=== PATIENT | male | born 1970 | race Caucasian/White ===

== ENCOUNTER 2017-04-04 11:39 | Inpatient (IN) ==
[2017-04-04] MEDS ORDERED: Aspirin 81 MG TAB.CHEW PO ONE (12:08)
--- NOTE | 2017-04-04 12:30 | Emergency Department Note ---
Disposition Clinical Impression: NSTEMI (non-ST elevated myocardial infarction), Angina pectoris, Anginal equivalent Disposition: Admitted As Inpatient Condition: Fair Chest Pain HPI - General Chief Complaint: ED Chest Pain Stated Complaint: htn Time Seen by Provider: 04/04/17 11:45 Source: patient, EMS Mode of arrival: EMS Limitations: no limitations Vital Signs Reviewed: Yes Nursing Notes Reviewed: Yes - History of Present Illness HPI Narrative: Mr Portillo is a 46-year-old male with past medical history of hypertension, smoking, and 2-day history of feeling bad all over. The patient says he was having muscle aches and pains and has been sleeping all weekend. He has been experiencing fatigue and right-sided arm pain for 2 days. He denies any chest pain, nausea or vomiting, or diaphoresis. He presented to the emergency department at the [facility] this morning. Upon workup at the [facility], he had an elevated troponin of 1.32. He was transferred here for care and workup of ACS. Severity scale (1-10): 0 - Related Data Home Medications Medication Instructions Recorded Confirmed HYDROcodone/Acet 5/325 mg [[place] 1 tab PO Q6H PRN 04/04/17 04/04/17 5-325 mg] Losartan Potassium [Cozaar] 100 mg PO DAILY 04/04/17 04/04/17 Allergies Allergy/AdvReac Type Severity Reaction Status Date / Time No Known Allergies Allergy Verified 04/04/17 11:43 Review of Systems: As Per HPI Constitutional: Denies: fever Cardiovascular: Reports: palpitations. Denies: chest pain Respiratory: Denies: dyspnea Gastrointestinal: Denies: abdominal pain, nausea, diarrhea, constipation Genitourinary: Denies: urgency, dysuria Musculoskeletal: Denies: back pain (Patient has occasional right arm pain.) Neurological: Denies: headache Chest Pain PMH - Past Medical History Medical history: Reports: hypertension Psychiatric history: Reports: depression, PTSD - Social History Smoking Status: Current every day smoker Alcohol use: Reports: none Drug use: Reports: none Physical Exam - General Limitations: no limitations General appearance: alert - Head Head exam: atraumatic, normocephalic - Eye Eye exam: Present: conjunctival injection - Respiratory Respiratory exam: Present: normal lung sounds bilaterally. Absent: respiratory distress, wheezes, stridor - Cardiovascular Cardiovascular exam: Present: regular rate, normal rhythm. Absent: systolic murmur, diastolic murmur, rubs, gallop - Abdominal Exam Abdominal exam: Present: soft, Non-Tender. Absent: guarding, rebound Course Course Narrative: 46-year-old male with past medical history of hypertension presents after a transfer from the [facility] with a troponin of 1.32. Patient's urinalysis from the [facility] was clean except for positive leukocyte Estrace. No nitrites, no white blood cells. Patient's electrolytes within normal limits. Patient has a creatinine of 1.13 and a GFR of greater than 60 as well as a BUN of 11. Patient has an elevated white blood cell count of 13.9, a hemoglobin of 17.9, HCT of a 51.8, and a left shift on differential. Platelets 229. All other parameters of CBC WNL. Patient needs reflexive urine culture- check with [facility] for urine culture results. Patient denies any dysuria or discomfort. Upon arrival to the ED a second set of troponins as well as an influenza test was ordered. Patient to be admitted to medicine for NSTEMI/ACS workup. - Reevaluation(s) Reevaluation #1: Patient unsure if right arm pain relieved by initial nitro trial as he just gave blood for that site. Will continue nitro trial. Reevaluation #2: Subsequent ECG ordered in department. Consult to cardiology. Reevaluation #3: To Dr. francisco javier manzanares cardiology. Will implement the heparin protocol. Patient admitted to medicine. Additional Reevaluation(s): ECG taken at April 04 at 2:35 PM shows normal sinus rhythm. Serial ECGs unchanged in ED. Spoke with cardiology nurse practitioner Aaron Okaes, they are taking the patient to the catheter lab in the next few minutes. - Consultations Consultation #1: Talked to Cardiology at 2:[address] Burgess. She recommended admission to medicine service. She also advised to start heparin per protocol. She will send someone from cardiology down to the ED to evaluate the patient while awaiting medicine admission. Vital Signs Temperature 99.1 F 04/04/17 11:43 Pulse Rate 86 04/04/17 11:43 Respiratory Rate 18 04/04/17 11:43 Blood Pressure 158/114 04/04/17 11:43 O2 Sat by Pulse Oximetry 96 04/04/17 11:43 Temperature 99.1 F 04/04/17 11:43 Pulse Rate 84 04/04/17 12:55 Respiratory Rate 18 04/04/17 12:55 Blood Pressure 150/107 04/04/17 12:55 O2 Sat by Pulse Oximetry 98 04/04/17 12:55 Oxygen Delivery Oxygen Delivery Room Air Chest Pain - MDM Narrative Medical decision making narrative: NSTEMI - Differential Diagnosis Likely: unstable angina pectoris, atypical chest pain, chest pain - Medical Records Medical records reviewed: Yes I reviewed the patient's medical records. - Lab Data Lab results reviewed: Yes I reviewed the patient's lab results. Lab Results 04/04/17 04/04/17 Range/Units 13:00 13:00 PT 11.5 (9.4-12.1) Seconds INR 1.1 APTT 28.8 (26.0-36.0) Seconds Troponin I 1.10 H* (0-0.03) ng/mL - Radiology Data Radiology results reviewed: Yes I reviewed the patient's radiology results. Chest X-Ray 04/04/17 12:10 IMPRESSION: No acute cardiopulmonary disease. D/ / 04/04/2017 13:11:14 Kerri Cm MD / leda Interpreting Provider: Kerri Cm MD - EKG Data EKG attestation: Yes I reviewed and interpreted this EKG. EKG results narrative: Since ECG on 04/04/2017 at 11:45 AM shows sinus rhythm with 86 bpm and a marketed right axis deviation. ECG at its 8:46 AM on 04/04/2017 shows normal sinus rhythm. No ECG changes. Heart Score - Score History: Moderately Suspicious EKG: Non Specific repolarisation Disturbance Age: 45-65 Risk Factors: 1-2 risk factors Troponin: Greater than 3x normal limit HEART Score Total: 6 Attestation Statement - Attestation Attestation: I personally interviewed and examined this patient and my medical decision- making was reviewed with the Resident Physician, Dr. Marin. I agree with the documented findings, disposition and treatment plan as described except to the extent set forth below. Patient is a 46-year-old white male with a history of hypertension who presents to the emergency department today as a transfer from the [facility] for atypical angina and elevated troponin. Patient reports that he "just has not been feeling well over the last 2 days", complaining of generalized myalgias increased fatigue and sleeping frequently. Patient denies any form of chest pain pressure or heaviness but does state that he has had an aching sensation in his right upper arm with no history of trauma or injury. Patient denies any fevers or chills, no upper respiratory symptoms or cough no sore throat no other associated symptoms. Patient had received aspirin and with nitroglycerin had complete relief of his right arm pain. Patient's hemodynamically stable here in the ED. Patient's physical exam findings as documented. EKG shows no acute ischemic change sinus rhythm. EKGs were performed over time with no dynamic changes during his ED course. Patient was placed on a groundwater monitoring technician continuous pulse ox IV saline while was established labs were drawn and sent and repeat labs show an elevated troponin here at greater than 1. Due to patient's concerning story and significantly elevated troponin we contacted cardiology in regards to patient's right arm pain and abnormal troponin with no other etiology for this. Cardiology came to see the patient in the emergency department and although right arm pain had resolved with nitroglycerin the decision was made by cardiology to take the patient gently to [facility]. Currently patient is pain-free and hemodynamically stable. Patient will be admitted to the medicine service following catheterization and cardiology has seen the patient from the ED.
[2017-04-04] MEDS: Nitroglycerin 0.4 MG TAB.SUBL SL PRN ×3 (12:51→13:01)
[2017-04-04 13:12] LABS: INR 1.1; Prothrombin Time 11.5 Seconds (9.4-12.1)
[2017-04-04 13:15] LABS: Activated Partial Thrombo Time 28.8 Seconds (26.0-36.0)
[2017-04-04] MEDS ORDERED: Nitroglycerin 1 INCH/GM PACKET TP ONE (13:41)
[2017-04-04] MEDS ORDERED: *HR* Heparin 5,000 UNIT/ML VIAL IVP ONE (14:14)
[2017-04-04] MEDS ORDERED: *HR* Heparin 5,000 UNIT/ML VIAL IVP PRN ×2 (14:14)
[2017-04-04] MEDS: Heparin 25,000 UNIT/500 ML D5W 25,000 UNIT/500 ML MLS IVC SCH (14:27)
[2017-04-04] MEDS ORDERED: Nitroglycerin 1,000 MCG/10 ML VIAL IV ONE (14:28)
[2017-04-04] MEDS ORDERED: *HR* Heparin 10,000 UNIT/10 ML VIAL ONE (14:28)
[2017-04-04] MEDS ORDERED: Verapamil 5 MG/2 ML VIAL ONE (14:28)
[2017-04-04] MEDS ORDERED: Heparin 1,000 UNITS/500 mL NS 500 ML ONE (14:28)
[2017-04-04] MEDS ORDERED: 0.9 % Sodium Chloride 1,000 ML ONE ×2 (14:28→15:15)
--- NOTE | 2017-04-04 14:32 | Cardiology Consult Note ---
<Aaron Bernardo R - Last Filed: 04/04/17 14:35> Date of Encounter: 04/04/17 Time of Encounter: 14:29 Assessment and Plan (1) NSTEMI (non-ST elevated myocardial infarction) Current Visit: Yes Status: Acute Troponins 1.32, 1.10. Symptoms of fatigue, weakness, intermittent right arm pain and right hand tinging since Tuesday, not worsened or improved by anything specifically. No cardiac hx. CXR negative. Risk factors for CAD include HTN and tobacco abuse. EKG SR with no ischemic changes. UA positive for leuk esterase and BP elevated at 154/110, but no clear secondary cause that would explain his troponin of >1. Creatinine 1.13, WBC 13.9 with left shift, HGB 17 range. Low grade temp of 99.1. Recommend [facility]. R/B/A discussed. Pt agrees to proceed. [facility] today. Start heparin gtt. Will start ASA, Statin, BB. Discussed with Dr. Churchill. Will not load with antiplatelet at this time. Check echo to evaluate structure and function. Continue to follow. (2) Essential hypertension Current Visit: Yes Status: Chronic 154/110 on presentation, most recently 150/107. Will add BB. Continue to monitor and adjust antihypertensives as necessary. (3) Tobacco abuse Current Visit: Yes Status: Chronic Smoking cessation counseling given. Discussion w patient/family: The assessment and plan as outlined above was discussed with the patient and/or family members who expressed understanding and agreement. All questions were answered. Thank you for involving us in the care of your patient. Please call with any questions. I will discuss all the above with Dr. Burgess and make changes as necessary. History of Present Illness Consult date: 04/04/17 Requesting physician: Ronda Marin Consult reason: NSTEMI Chief complaint: arm pain, fatigue History of present illness: Mr. Portillo is a 46 year old male with PMH of HTN and tobacco abuse that presented to [facility] today with chief complaint of fatigue, weakness and right arm pain that started on Tuesday. Right arm pain has been intermittent associated with right hand tingling. He denies chest pain or back pain, denies worsening dyspnea or any lower extremity edema. No prior cardiac hx. Troponin at [facility] found to be 1.32, at [facility] 1.10. CXR negative. He did have Leuk esterase in his urine with culture pending. BP elevated on presentation 158/114, most recently reading 150/107. Cardiology consulted for further recommendations. Past Med Surg Social Fam HX - Past Medical History Medical history: hypertension Psychiatric history: depression, PTSD - Social History Smoking Status: Current every day smoker Smokeless Tobacco Status: No Alcohol use: none Drug use: none Medications and Allergies Allergies No Known Allergies Allergy (Verified 04/04/17 11:43) All Systems Review: A 10-system review of systems was performed and is negative for pertinent findings except as documented above in the HPI. - Constitutional Constitutional: fatigue, weakness - Cardiovascular Cardiovascular: as per HPI, radiating jaw, neck or arm pain Physical Examination Vital Signs, Last 4 Hours Temp Pulse Resp BP Pulse Ox 04/04/17 12:55 84 18 150/107 98 04/04/17 11:50 97 04/04/17 11:43 99.1 F 86 18 158/114 96 Vital Signs Temp Pulse Resp BP Pulse Ox 04/04/17 12:55 84 18 150/107 98 04/04/17 11:50 97 04/04/17 11:43 99.1 F 86 18 158/114 96 Intake and Output 04/03/17 04/04/17 04/04/17 23:59 07:59 15:59 Other: Weight 115.666 kg Patient Weight 04/04/17 23:59 Weight 115.666 kg General: Conversant, No Apparent Distress HEENT: Atraumatic, Normocephaly, Mucus Membranes Moist Neck: No JVD, Normal carotid pulses Cardiac: Reg Rate and Rhythm, Normal S1 and S2, No Murmur Lungs: Other (coarse lung sounds throughout) Neuro: Alert and responsive, No focal deficits noted Abdomen: Soft, Non-Tender Skin: No rashes noted on visualized skin Musculoskeletal: No Chest Wall Tenderness Extremities: No Clubbing, No Cyanosis, No Edema, Normal Pulses Results Lab Results 04/04/17 04/04/17 13:00 13:00 INR 1.1 APTT 28.8 Troponin I 1.10 H* Cardiac Enzymes 04/04/17 Range/Units 13:00 Troponin I 1.10 H* (0-0.03) ng/mL Impressions Chest X-Ray 04/04/17 12:10 IMPRESSION: No acute cardiopulmonary disease. D/ / 04/04/2017 13:11:14 Kerri Cm MD / leda Interpreting Provider: Kerri Cm MD Active Medications Heparin Sodium (Porcine) (Heparin) 4,000 unit IVP Q6HR PRN PRN Reason: SEE COMMENTS Stop: 10/04/17 14:15 Heparin Sodium (Porcine) (Heparin) 2,000 unit IVP Q6H PRN PRN Reason: SEE COMMENTS Stop: 10/04/17 14:15 Heparin Sodium/Dextrose (Heparin 25,000 Unit/500 Ml D5w) 25,000 unit in 500 mls @ 27.76 mls/hr IVC .Q18H1M TANA; 12 UNIT/KG/HR PRN Reason: Protocol Stop: 10/04/17 14:16 Last Admin: 04/04/17 14:27 Dose: 12 unit/kg/hr, 27.76 mls/hr Nitroglycerin (Nitroglycerin) 0.4 mg SL Q5MIN PRN PRN Reason: Chest Pain Stop: 10/04/17 12:19 Last Admin: 04/04/17 13:01 Dose: 0.4 mg - EKG Interpretation EKG results cardiology: personally reviewed (SR) Consult Discharge Plan - Plan [facility]errals: [facility]Primary Care Provider[facility] - <Amita Burgess - Last Filed: 04/05/17 18:03> Date of Encounter: 04/05/17 Assessment and Plan Discussion w patient/family: The assessment and plan as outlined above was discussed with the patient and/or family members who expressed understanding and agreement. All questions were answered. Thank you for involving us in the care of your patient. Please call with any questions. History of Present Illness History of present illness: Mr. Portillo is a 46 year old male All Systems Review: A 10-system review of systems was performed and is negative for pertinent findings except as documented above in the HPI. Physical Examination Vital Signs, Last 4 Hours Temp Pulse Resp BP Pulse Ox 04/05/17 15:35 98.8 F 77 14 124/77 94 Results 04/04/17 14:57 04/05/17 00:54 - Attending Attestation I examined this patient and my medical decision-making was reviewed with the Resident Physician. I agree with the documented findings, disposition and treatment plan. Mr. Portillo presented with an NSTEMI and underwent LHC yesterday. This demonstrated significant CAD and bypass was recommended. The patient and family have decided they want to go to [place] for surgery. We will allow the hospitalist to make arrangements and contact [facility]. We will sign off. Please call with questions.
--- NOTE | 2017-04-04 14:42 | Pre-Sedation Evaluation ---
Pre-sedation evaluation - Pre-sedation checklist Date of procedure: 04/04/17 Procedure: C Recent Vitals: Last Vital Signs Temp 99.1 F 04/04/17 11:43 Pulse 84 04/04/17 12:55 Resp 18 04/04/17 12:55 BP 150/107 04/04/17 12:55 Pulse Ox 98 04/04/17 12:55 H&P (including ROS) documented in medical record: Yes Previous reaction to sedatives/anesthetics: No Dietary Status: NPO after Midnight ASA Classification *see protocol: CLASS II-Mild systemic disease Plan of Care: Pt appropriate candidate for procedure/moderate/conscious sedation , Risks/benefits of procedure/sedation discussed w/ patient/family
[2017-04-04 15:05] LABS: Hematocrit 49.1 % (37.5-50.1); Hemoglobin 17.1 g/dL (12.9-16.9); Mean Corpuscular HGB Conc 34.8 g/dL (31.6-35.5); Mean Corpuscular Hemoglobin 31.7 pg (28.0-33.3); Mean Corpuscular Volume 91.1 fL (83.0-100.0); Mean Platelet Volume 10.6 fL (9.4-12.4); Platelet Count 232 K/mcL (140-400); Red Blood Count 5.39 M/mcL (4.19-5.50); Red Cell Distribution Width 13.3 % (11.5-14.5)
[2017-04-04 15:12] LABS: INR 1.1; Prothrombin Time 12.1 Seconds (9.4-12.1)
[2017-04-04] MEDS ORDERED: *HR* FentaNYL (PF) 100 MCG/2 ML VIAL ONE (15:15)
[2017-04-04] MEDS ORDERED: *HR* Midazolam HCl 5 MG/5 ML VIAL IVP ONE (15:15)
[2017-04-04 15:28] LABS: Activated Partial Thrombo Time 188.9 Seconds (26.0-36.0)
[2017-04-04] MEDS ORDERED: *HR* Morphine 2 MG/ML SYRINGE IVP PRN (15:42)
[2017-04-04] MEDS ORDERED: Acetaminophen 325 MG TABLET PO PRN (15:42)
[2017-04-04] MEDS ORDERED: Ondansetron 4 MG/2 ML VIAL IVP PRN (15:42)
[2017-04-04] MEDS ORDERED: Naloxone 0.4 MG/ML INJ IVP PRN (15:44)
--- NOTE | 2017-04-04 15:44 | Internal Med History&Physical ---
Date of Encounter: 04/04/17 Time of Encounter: 15:41 Assessment and Plan (1) NSTEMI (non-ST elevated myocardial infarction) Current visit: Yes Status: Acute Risk factors for CAD include HTN and tobacco abuse. EKG SR with no ischemic changes. Status post [facility] today which shows 3 vessel severe disease. Cardiology has been consulted, will follow recommendation. Plan for bypass surgery with cardiothoracic on . currently chest pain free. will continue asa, bb and heparin drip. (2) Essential hypertension Current visit: Yes Status: Chronic continue home meds, BP is stable (3) Tobacco abuse Current visit: Yes Status: Chronic (4) UTI (urinary tract infection) Current visit: Yes Status: Acute ua at [facility] showed LE positive with wbcs, denies urinary symptoms at this time. will treat emperically with Iv ceftriaxone for now follow urine cx results. Qualifiers: Urinary tract infection type: acute cystitis Hematuria presence: without hematuria Qualified Code(s): N30.00 - Acute cystitis without hematuria Internal Medicine - H&P: HPI Chief complaint: chest pain Admitted From: Intrahospital Transfer Plans for Post Hospital Care: Home History of present illness: Mr. Portillo is a 46 year old male with PMH of HTN and tobacco abuse that presented to [facility] today with chief complaint of fatigue, weakness and right arm pain that started on tuesday. He denies chest pain or back pain, denies worsening dyspnea or any lower extremity edema. No prior cardiac hx. Troponin at [facility] found to be 1.32, at [facility] 1.10. CXR negative. cardio was consulted and they recommended [facility] today, he was started on heparin drip, status post [facility] today which showed three-vessel disease. Cardiothoracic surgery has been consulted and is planned for bypass surgery on . At the time of my assessment, he is lying in bed in no acute distress, denies any chest pain at this time. Past Med Surg Social Fam HX - Past Medical History Medical history: hypertension Psychiatric history: depression, PTSD - Social History Smoking Status: Current every day smoker Smokeless Tobacco Status: No Alcohol use: none Drug use: none - Family History Mother Living Status: Still Living Hx Family Cardiac Disorders: No Hx Family Respiratory Disorders: No Hx Family Cancer: No Hx Family GI Disorders: No Hx Family Genitourinary Disorders: No Hx Family Endocrine Disorder: No Hx Family Musculoskeletal Disorders: No Hx Family Neuromuscular Disorders: No Hx Family Neurologic Disorders: No Hx Family HEENT Disorders: No Hx Family Autoimmune Disorders: No Hx Family Reproductive Disorders: No Hx Family Psychosocial Disorders: No Hx Family Medical Disorders: No Grandfather Living Status: Hx Family Cancer: Yes (lung) Grandmother Living Status: Hx Family Cardiac Disorders: Yes Hx Family Cancer: Yes Internal Medicine - H&P: Meds HYDROcodone/Acet 5/325 mg [[place] 5-325 mg] 1 tab PO Q6H PRN 04/04/17 [History] Losartan Potassium [Cozaar] 100 mg PO DAILY 04/04/17 [History] Allergies No Known Allergies Allergy (Verified 04/04/17 11:43) All Systems PM: A 10-system review of systems was performed and is negative for pertinent findings except as documented above in the HPI. - Constitutional Constitutional: as per HPI - EENT Eyes: as per HPI Ears: as per HPI Nose, mouth and throat: as per HPI - Breasts Breasts: as per HPI - Cardiovascular Cardiovascular ROS IM: as per HPI - Respiratory Respiratory: as per HPI - Gastrointestinal Gastrointestinal: as per HPI - Genitourinary Genitourinary ROS male: as per HPI - Constitutional Vitals: Temp Pulse Resp BP Pulse Ox 99.1 F 84 0 0/0 98 04/04/17 11:43 04/04/17 12:55 04/04/17 15:27 04/04/17 15:27 04/04/17 12:55 General appearance: Present: A&O X 3, no acute distress Exam: Neck supple Chest bilateral clear, no added sounds. CVS S1-S2, no murmurs rubs or gallops. Abdomen soft, nontender, bowel sounds are present. Extremities no edema. Neuro no focal deficit. Internal Med - H&P Results - Labs CBC & Chem 7: 04/04/17 14:57 Labs: Short CBC 04/04/17 Range/Units 14:57 WBC 16.5 H (4.3-11.1) K/mcL Hgb 17.1 H (12.9-16.9) g/dL Hct 49.1 (37.5-50.1) % Plt Count 232 (140-400) K/mcL
--- NOTE | 2017-04-04 16:11 | Invasive Diagnostic Lab Proc ---
Name: Giovany Portillo Date of Study: 04/04/2017 Date: 1970 Ht: 70.1in Medical Record#: [id number] Age: 46 Wt: 253.53lb Gender: Male BSA: 2.31 Order #: [id number] BMI: 36.3 Physicians Procedure Physician: Tree Churchill MD, [facility] Referring MD: Referring MD: Staff Name Position Time In Irina Godwin RN Monitor 03:13 PM Brittny Rios RN Thread Inspector 03:13 PM Shoshana Neri RT (R) Scrub 03:13 PM Indications Indication Non-Stemi Procedures Performed Procedure L HRT ARTERY/VENTRICLE ANGIO Pre-Procedure Checklist Informed consent is complete signed and on chart. H&P is on chart. ID band is on and ID verified with patient. Patient NPO for procedure The procedure was described for the patient and questions were answered. Blood Pressure: 150/107 ECG is on chart. Rhythm: NSR Plan of Care Patient will tolerate the procedure without complications. Adequate level of comfort will be maintained. Hemodynamics will remain stable Patient will recover from procedure without complications. Respiratory function will be maintained. Cardiac rhythm will remain stable. Patient temperature will be maintained. Patient and/or family have verbalized understanding of the procedure. Patient Education Chief Complaint/Reason for Test: Cardiac Cath Developmental Category: Adult (18-64 years) Developmentally Appropriate for Age: Yes Learning Barriers: None Education Needs: Procedure Education Method: Verbal Information Taught: Cardiac Cath Educational Evaluation: Able to repeat information Intravenous Access Time IV Size Location DC'd Fluid/Drip Rate Units RN 20g 1 09/01" Patent On Arrival Lt Antecubital 0.9NaCl 25 ml/hr Brittny Rios RN Allergies No Known Allergies Vital Signs Time BP (mmHg) HR (bpm) O2 Sat. RR (bpm) LOC 150 / 107 84 98 % 16 5 = Fully awake and oriented or at pre-proc level 03:14 PM / % 5 = Fully awake and oriented or at pre-proc level 03:14 PM / % 4 = Oriented but drowsy 03:44 PM 155 / 100 % 03:46 PM 161 / 100 % 03:11 PM 181 / 114 82 94 % 20 03:16 PM 168 / 116 79 96 % 21 03:21 PM 165 / 113 80 95 % 24 03:26 PM 162 / 106 96 99 % 27 03:31 PM 154 / 99 103 91 % 18 03:36 PM 157 / 101 97 92 % 16 03:41 PM 153 / 102 96 93 % 13 03:30 PM / % 4 = Oriented but drowsy Procedural Medications Time Medication Dose Units Method Given By 03:14 PM Oxygen 2 L/min nasal cannula Brittny Rios RN 03:19 PM Versed 2 mg Intravenous Brittny Rios RN 03:19 PM Fentanyl 50 mcg Intravenous Brittny Rios RN 03:24 PM Lidocaine 2% 0.5 ml Subcutaneous Tree Churchill MD, FACC 03:25 PM Versed 2 mg Intravenous Brittny Rios RN 03:25 PM Fentanyl 25 mcg Intravenous Brittny Rios RN 03:26 PM Heparin 1000 units Nitroglycerin 200 mcg Verapamil 2.5 mg Intraarterial Tree Churchill MD, FACC 03:39 PM Hydralazine 20 mg Intravenous Brittny Rios RN ASA Classification: CLASS II- Mild systemic disease (i.e. well-controlled diabetes, hypertension, asthma, cigarette smoking) Vidya Score Preprocedure Postprocedure Activity 2- Moves 4 extremities sustained head lift Activity 2- Moves 4 extremities sustained head lift Circulation 2- SBP +/= 20 points of pre-anesthetic level Circulation 2- SBP +/= 20 points of pre-anesthetic level Consciousness 2- Awake and alert oriented x 3 Consciousness 2- Awake and alert oriented x 3 O2 Saturation 2- Able to maintain O2 satruation of 92% on room air O2 Saturation 2- Able to maintain O2 satruation of 92% on room air Respiratory 2- Able to deep breathe and cough well Respiratory 2- Able to deep breathe and cough well Total Score 10 Total Score 10 Contrast Agent: Isovue Diagnostic Contrast: 73 ml Total Contrast: 73 ml Fluoro Dose: 357 mGy Procedure Log Time Note Enter By 03:07 PM 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 well-controlled diabetes, hypertension, asthma, cigarette smoking) tsites 03:07 PM Meet and greet completed tsites 03:07 PM Sign in performed according to hospital policy. tsites 03:07 PM Procedure start 15:07 tsites 03:10 PM CathStat 03:10 PM Vitals capture started with the following parameters, Patient=Adult, Interval=5 min, Initial Azitxagg=559 mmHg, Deflation Rate=5 mmHg, Cuff placed on Right Arm 03:10 PM Recorded ECG: HR=94 Condition=Condition 1 03:11 PM HR=82 bpm, DIPY=786/114 mmhg, SpO2=94.0 %, Resp=20 B/min, Comment=NSR 03:13 PM Patient charges- Angio tray pack, Navilyst 3mm J, Pulse Oximetry and ACIST tubing and transducer tsites 03:13 PM Irina Godwin RN Position: Monitor Time in: 15:13 tsites 03:13 PM Brittny Rios RN Position: Thread Inspector Time in: 15:13 tsites 03:14 PM Sohshana Neri RT (R) Position: Scrub Time in: 15:13 tsites 03:14 PM Hair removed from procedure site in procedure lab using clippers. Right wrist prepped with Chloraprep by Brittny Rios RN, safety strap applied then patient was draped. Skin intact. tsites 03:14 PM Hair removed from procedure site in procedure lab using clippers. Right groin prepped with Chloraprep by Brittny Rios RN, safety strap applied then patient was draped. Skin intact. tsites 03:14 PM Time: 15:14 Oxygen on at 2 L/min per nasal cannula by Brittny Rios RN tsites 03:14 PM Time: 15:14 Patient comfortable and pain free: Yes tsites 03:14 PM Time: 15:14LOC: 5 = Fully awake and oriented or at pre-proc level tsites 03:15 PM Clinical Presentation: Non-STEMI tsites 03:16 PM HR=79 bpm, MXMM=580/116 mmhg, SpO2=96.0 %, Resp=21 B/min, Comment=NSR 03:19 PM Time: 15:19 Versed 2 mg Intravenous Given by Brittny Rios RN tsites 03:19 PM Time: 15:19 Fentanyl 50 mcg Intravenous Given by Brittny Rios RN tsites 03:21 PM HR=80 bpm, XUMK=932/113 mmhg, SpO2=95.0 %, Resp=24 B/min, Comment=NSR 03:21 PM Pressure channel 1 zeroed. 03:24 PM Time out performed according to hospital policy tsites 03:24 PM Time: 15:24 0.5 ml Lidocaine 2% to right radial Subcutaneous Given by Tree Churchill MD, [facility] tsites 03:25 PM Time: 15:25 Versed 2 mg Intravenous Given by Brittny Rios RN tsites 03:25 PM Time: 15:25 Fentanyl 25 mcg Intravenous Given by Brittny Rios RN tsites 03:26 PM Access obtained by percutaneous puncture. 6Fr 10cm Terumo Glidesheath sheath placed in right Radial artery. [id number] tsites 03: PM Time: 15:26 Patient given 1000 units Heparin, 200 mcg Nitroglycerin, and 2.5 mg Verapamil Intraarterial by Tree Churchill MD, [facility] tsites 03:26 PM HR=96 bpm, DTKW=894/106 mmhg, SpO2=99.0 %, Resp=27 B/min, Comment=NSR 03:26 PM 5Fr TIG catheter inserted over the wire [facility] tsites 03: PM 0.035 260cm Navilyst 3mmJ wire [id number] tsites 03:28 PM LCA angiography performed in multiple views. tsites 03:28 PM Recorded Pressure: Ao, LT=905, Condition=Condition 1 (Aorta) Ao 115/89/102 03:30 PM Time: 15:14LOC: 4 = Oriented but drowsy tsites 03:30 PM Time: 15:14 Patient comfortable and pain free: Yes tsites 03:30 PM Lesion found in 1st Marginal. Pre Stenosis: 95 tsites 03:31 PM Lesion found in Proximal LAD. Pre Stenosis: 60 tsites 03:31 PM CY=494 bpm, ZAQP=112/99 mmhg, SpO2=91.0 %, Resp=18 B/min, Comment=NSR 03:32 PM Lesion found in Mid LAD. Pre Stenosis: 80 tsites 03:32 PM Catheter removed tsites 03:32 PM 5Fr 3DRC catheter inserted over the wire [id number] tsites 03:34 PM unable to engage tsites 03:34 PM Catheter removed tsites 03:34 PM 5Fr IM catheter inserted over the wire [id number] tsites 03:35 PM RCA angiography performed in multiple views. tsites 03:36 PM Recorded Pressure: Ao, HR=97, Condition=Condition 1 (Aorta) Ao 134/109/122 03:36 PM HR=97 bpm, LMXV=289/101 mmhg, SpO2=92 %, Resp=16 B/min 03:36 PM Lesion found in Mid RCA. Pre Stenosis: 100 tsites 03:38 PM Pressure channel 1 zero failed. 03:38 PM Pressure channel 1 zeroed. 03:38 PM Recorded Pressure: LV, HR=99, Condition=Condition 1 (Left Ventricle) LV 154/11/19 03:38 PM Catheter removed tsites 03:38 PM 5Fr Pigtail catheter inserted over the wire DNC tsites 03:38 PM Recorded Pressure: LV, Ao, HR=97, Condition=Condition 1 (Left Ventricle) LV 130/18/36, (Aorta) Ao 149/105/124 03:38 PM Catheter selectively placed in left ventricle tsites 03:39 PM Bolus angiogram of left Ventricle complete: 10 ml/sec for a total of 25 mls tsites 03:39 PM Catheter removed tsites 03:39 PM Wire removed tsites 03:39 PM Time: 15:39 Hydralazine 20 mg Intravenous Given by Brittny Rios RN tsites 03:41 PM HR=96 bpm, EDQJ=355/102 mmhg, SpO2=93.0 %, Resp=33 B/min, Comment=NSR 03:43 PM [ Start or Stop Vital ] 03:43 PM [ Start or Stop Vital ] 03:43 PM NIBP STAT measurement started. 03:44 PM APZR=716/100 mmhg, Comment=NSR 03:45 PM Time: 15:30 Patient comfortable and pain free: Yes tsites 03:45 PM Time: 15:30LOC: 4 = Oriented but drowsy tsites 03:46 PM MTUY=794/100 mmhg 03:47 PM Vitals capture stopped. 03:48 PM Coronary Dominance: right tsites 03:48 PM Proximal Left Anterior Descending Coronary Artery with 60% stenosis. tsites 03:49 PM Mid/Distal Left Anterior Descending Coronary Artery and diagonal branches with 80% stenosis. tsites 03:49 PM Right Coronary, Right Posterior Descending Arteries with Right Posterolateral and Acute Marginal branches with 100 % stenosis. tsites 03:49 PM Circumflex, Obtuse Marginal, Left Posterior Descending, and Left Posterolateral Coronary Arteries with 95 % stenosis. tsites 03:50 PM Procedure completed at 15:50 tsites 03:50 PM Sign out completed: Radiation Dose 356.97 mGy Fluoro Time: 3.4 Isovue 370 - 200ml contrast 73 ml given by Tree Churchill MD, FACC. Complications: NoneCardiac Rehab Consult needed: NoConfirmed administered medications: Yes tsites 03:50 PM Isovue 370 - 200ml,1 Bottle(s) used. tsites 03:51 PM Arterial sheath pulled, Vasc Band closure device used and was Successful S/N. tsites 03:51 PM 10 ml air in Vasc Band. tsites 03:51 PM Post ECG NSR tsites 03:51 PM Post Blood Pressure 153/102 tsites 03:51 PM 15:51 Post Pulses Bilateral DP & PT 2+ tsites 03:51 PM Information taught Cardiac Cath and Vasc Band tsites 03:52 PM Education needs Procedure, Plan of Care, and Safe & Effective Use of Medications tsites 03:52 PM Learning barriers :None tsites 03:52 PM Education Methods Verbal tsites 03:52 PM Education evaluation Able to repeat information tsites 03:52 PM Site status No bleeding/hematoma - Rt Wrist as reported by Shoshana Neri RT (R) at 15:52 tsites 03:[address] Gilbert for consult. tsites 03:54 PM Report given to Homa DENISE Pt taken to 3B Room #47. 15:54 tsites 03:55 PM Plavix, Effient or Brilinta given No tsites 03:55 PM Delay to floor No tsites 03:55 PM Patient out of room: 15:55 tsites 03:55 PM Family placed in consult room. tsites 03:56 PM Complications: None tsites 03:56 PM Fluoro Time: 3.4 tsites 03:57 PM Isovue 370 - 200ml contrast 73 ml given by Tree Churchill MD, FACC. tsites 03:57 PM Radiation Dose 356.97 mGy tsites 04:[address] Gilbert returned call and notified of consult tsites Complications Complication None Hemodynamics Pressures Site Systolic/A Wave Diastolic/V Wave Mean AO 115 89 102 AO 134 109 122 LV 154 11 19 LV 130 18 36 AO 149 105 124 Post Procedure Information Blood Pressure: 153/102 mmHg Rhythm: NSR Post procedural instructions were given Surgery consult for CABG Closure Device Time Device Success/Fail 04/04/2017 3:40:00 PM Mechanical Compression Successful Site Checks Time Location Status Staff Sheath In? Note 03:52 PM Rt Wrist No bleeding/hematoma Shoshana Neri RT (R) Pulses Time Site Pre-Procedure Post-Procedure Note Bilateral DP & PT 2+ Bilateral radial 2+ 3:51:00 PM Bilateral DP & PT 2+ 04/04/2017 3:51:00 PM Rt Radial 2+ Updated by [facility], RT (R) on 04/04/2017 4:04:18 PM [facility], RT electronically signed on 04/04/2017 4:05:05 PM with status of Final
--- NOTE | 2017-04-04 16:53 | Electrocardiograph Report ---
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
[2017-04-04 16:56] LABS: Heparin anti-factor XA UFH 0.9 IU/mL (0.30-0.70)
[2017-04-04] MEDS: Nicotine 21 MG PATCH.TD24 TD SCH (20:13)
[2017-04-04 20:20] LABS: Bilirubin,Urine Negative (Negative); Blood,Urine Negative (Negative); Clarity,Urine Clear (Clear); Color,Urine Yellow (Yellow); Glucose,Urine (UA) Normal (Normal); Ketones,Urine Negative (Negative); Leukocyte Esterase,Urine Small (Negative); Nitrite,Urine Negative (Negative); PH,Urine 7.5 pH Units (5.0-8.0); Protein,Urine Negative (Neg-Trace); Specific Gravity,Urine 1.028 (1.010-1.025); Urobilinogen,Urine Normal (Normal)
[2017-04-04 20:23] LABS: Bacteria,Urine None Seen per hpf (None-Few); Hyaline Casts,Urine None Seen per lpf (None-Few); Squamous Epithelial Cell,Urine None Seen per lpf (None-Few); WBC,Urine 0-3 per hpf (0-3)
--- NOTE | 2017-04-04 20:56 | Electrocardiograph Report ---
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
[2017-04-05 01:15] LABS: BUN/Creatinine Ratio 8 (6-26); Blood Urea Nitrogen 8 mg/dL (8-26); Calcium 9.4 mg/dL (8.6-10.8); Carbon Dioxide 22 mEq/L (19-29); Chloride 106 mEq/L (98-109); Glucose 149 mg/dL (70-99); Osmolality,Calculated 285 (280-300); Sodium 137 mEq/L (136-145); eGFR For African Americans > 60 (> 60); eGFR For Non-African Americans > 60 (> 60)
[2017-04-05 01:16] LABS: Potassium 3.7 mEq/L (3.5-4.5)
--- NOTE | 2017-04-05 08:24 | Invasive Diagnostic Lab ---
Name: Giovany Portillo Date of Study: 04/04/2017 Date: 1970 Ht: 178.0 cm /70.1 in Medical Record#: [id number] Age: 46 Wt: 115. kg / 253.53 lb Account/Order#: [id number] Gender: Male BSA: 2.31 Order #: [id number] Fluoro Dose: 357 mGy BMI: 36.3 Procedure Physician: Tree Churchill MD, FACC Referring MD: Referring MD: Procedures Performed: Transradial LEFT HEART CATH Indications: Non-Stemi Impressions: There is severe three vessel coronary artery disease. The left ventricle is normal and has normal contractility EF 60% Recommendations: Optimal medical therapy of patient's disease. Aggressive risk factor modification. Suggest patient have Elective coronary artery bypass surgery. History/Risk Factors: Hypertension Current/Recent Smoker PTSD Procedure Access obtained in the right Radial artery by percutaneous puncture Complications: None Contrast: Isovue 73ml Closure Device: Mechanical Compression Hemodynamics: Pressures Site Systolic/ A Wave Diastolic/ V Wave End Diastolic/ Mean HR AO 115 89 102 102 AO 134 109 122 97 LV 154 11 19 99 LV 130 18 36 98 AO 149 105 124 96 LV Ventriculography Ejection Method: LV Gram Ejection Fraction: 60% Wall Motion: LIANG Anterobasal Normal Anterolateral Normal Apical: Normal Inferoapical Normal Inferobasal Normal Coronary Dominance: right Lesion Findings/Interventions * Left Main Coronary Artery The LMCA is angiographically free of disease. * Left Anterior Descending There is a 60% stenosis in the Proximal LAD. There is a 80% stenosis in the Mid LAD. * Circumflex There is a 95% stenosis in the 1st Marginal. * Right Coronary Artery There is a long 100% stenosis in the Mid RCA. The lesion has collaterals which feed from left to right. Updated by Hyacinth Sites, RT (R) on 04/04/2017 4:02:52 PM Tree Churchill MD, FACC electronically signed on 04/05/2017 8:17:21 AM with status of Final
[2017-04-05] MEDS: Aspirin 81 MG TAB.CHEW PO SCH (10:37)
[2017-04-05] MEDS: Nicotine 21 MG PATCH.TD24 TD SCH (10:40)
--- NOTE | 2017-04-05 11:46 | Cardiology Progress Note ---
Date of Encounter: 04/05/17 Time of Encounter: 11:43 Assessment and Plan (1) NSTEMI (non-ST elevated myocardial infarction) Current Visit: Yes Status: Acute Troponins 1.32, 1.10. Symptoms of fatigue, weakness, intermittent right arm pain and right hand tinging since Tuesday, not worsened or improved by anything specifically. [facility] yesterday revealed severe 3 vessel CAD--60% pLAD, 80% mLAD, 95% 1st marginal , 100% mRCA with collaterals feeding left to right. Echo shows preserved EF. CT surgery recommended. Pt and family prefer transfer to [facility]. However, [facility]. Will consult social work to determine if [place] will approve [facility] transfer. Pt currently feeling well, denies any anginal equivalent. Right radial access site healing well. No bleeding, hematoma or ecchymosis noted. Continue heparin gtt, ASA, Statin, BB. Cardiology signing off. Reconsult PRN. (2) Essential hypertension Current Visit: Yes Status: Chronic 154/110 on presentation, now better controlled. Adjust antihypertensives as necessary. (3) Tobacco abuse Current Visit: Yes Status: Chronic Smoking cessation counseling given. Discussion w patient/family: The assessment and plan as outlined above was discussed with the patient and/or family members who expressed understanding and agreement. All questions were answered. Thank you for involving us in the care of your patient. Please call with any questions. I will discuss all the above with Dr. Burgess and make changes as necessary. Subjective Principal diagnosis: NSTEMI Interval history: S/P C yesterday revealed severe 3V CAD, recommended CT surgery consult. Pt and family discussed, would like transferred to [facility]. Pt denies chest pain or dyspnea this AM or any arm pain (anginal equivalent). Echo shows preserved EF. Objective Vital Signs, Last 4 Hours Temp Pulse Resp BP Pulse Ox 04/05/17 11:33 98 F 92 15 127/82 96 Vital Signs Temp Pulse Resp BP Pulse Ox 04/05/17 11:33 98 F 92 15 127/82 96 04/05/17 07:32 98.6 F 92 16 119/74 95 04/05/17 03:18 98.5 F 84 16 120/82 94 04/04/17 23:27 100.1 F H 103 18 143/93 95 04/04/17 18:43 98.0 F 95 16 134/88 94 04/04/17 18:00 94 15 142/89 96 04/04/17 17:30 87 15 128/89 96 04/04/17 17:00 86 15 137/88 96 04/04/17 16:45 87 15 138/87 95 04/04/17 16:30 91 16 158/93 94 04/04/17 16:15 98.0 F 93 14 146/95 95 04/04/17 16:08 98.0 F 93 17 158/101 94 04/04/17 15:27 0 0/0 04/04/17 12:55 84 18 150/107 98 04/04/17 11:50 97 Intake and Output 04/04/17 04/05/17 04/05/17 23:59 07:59 15:59 Intake Total 100 / 100 166 / 166 234 / 234 Balance 100 / 100 166 / 166 234 / 234 Intake: IV Fluids 100 / 100 166 / 166 234 / 234 Heparin 25,000 UNIT/500 166 / 166 234 / 234 ML D5W 25,000 unit In 500 ml @ 8.645 UNIT/KG/HR 19 .999 mls/hr IVC .Q24H TANA Rx#:[id number] Rocephin 1,000 MG In 100 / 100 Dextrose 5% (Minibag+) 100 ML 100 ML @ 200 mls/ hr IVPB Q24H TANA Rx#: [id number] Other: Meal Breakfast Percent of Meal Consumed 0% Weight 119.839 kg General: Conversant, No Apparent Distress HEENT: Atraumatic, Normocephaly, Mucus Membranes Moist Neck: No JVD, Normal carotid pulses Cardiac: Reg Rate and Rhythm, Normal S1 and S2, No Murmur Lungs: Normal Breath Sounds, No Wheeze, Rales, Rhonchi Neuro: Alert and responsive, No focal deficits noted Abdomen: Soft, Non-Tender Skin: Other (right radial access site healing well. No bleeding, hematoma or ecchymosis noted.) Musculoskeletal: No Chest Wall Tenderness Extremities: No Clubbing, No Cyanosis, No Edema, Normal Pulses Results 04/04/17 14:57 04/05/17 00:54 Lab Results 04/04/17 04/04/17 04/05/17 14:57 14:57 00:54 WBC 16.5 H Hgb 17.1 H Hct 49.1 Plt Count 232 INR 1.1 APTT 188.9 H* D Sodium 137 Potassium 3.7 Chloride 106 Carbon Dioxide 22 BUN 8 Creatinine 1.01 Glucose 149 H Calcium 9.4 04/05/17 04/05/17 00:54 07:58 WBC Hgb Hct Plt Count INR APTT 38.5 H D 52.8 H Sodium Potassium Chloride Carbon Dioxide BUN Creatinine Glucose Calcium Short CBC 04/04/17 Range/Units 14:57 WBC 16.5 H (4.3-11.1) K/mcL Hgb 17.1 H (12.9-16.9) g/dL Hct 49.1 (37.5-50.1) % Plt Count 232 (140-400) K/mcL BMP 0 04/05/17 Range/Units 00:54 Sodium 137 (136-145) mEq/L Potassium 3.7 (3.5-4.5) mEq/L Chloride 106 (98-109) mEq/L Carbon Dioxide 22 (19-29) mEq/L BUN 8 (8-26) mg/dL Creatinine 1.01 (0.72-1.25) mg/dL Glucose 149 H (70-99) mg/dL Calcium 9.4 (8.6-10.8) mg/dL Cardiac Enzymes 04/04/17 Range/Units 13:00 Troponin I 1.10 H* (0-0.03) ng/mL Urine 04/04/17 Range/Units 20:12 Urine Color Yellow (Yellow) Urine Clarity Clear (Clear) Urine pH 7.5 (5.0-8.0) pH Units Ur Specific [place] 1.028 H (1.010-1.025) Urine Protein Negative (Neg-Trace) mg/dL Urine Glucose (UA) Normal (Normal) mg/dL Impressions Chest X-Ray 04/04/17 12:10 IMPRESSION: No acute cardiopulmonary disease. D/ / 04/04/2017 13:11:14 Kerri Cm MD / leda Interpreting Provider: Kerri Cm MD Active Medications Acetaminophen (Tylenol) 650 mg PO Q6HR PRN PRN Reason: Mild Pain Stop: 10/04/17 15:43 Hydrocodone Bitart/Acetaminophen ([place] 5-325 Mg) 1 tab PO Q4HR PRN PRN Reason: Moderate Pain Stop: 10/04/17 15:43 Aspirin (Aspirin) 81 mg PO DAILY [facility] Stop: 10/05/17 09:01 Last Admin: 04/05/17 10:37 Dose: 81 mg Atorvastatin Calcium (Lipitor) 40 mg PO HS TANA Stop: 10/04/17 21:01 Last Admin: 04/04/17 20:13 Dose: 40 mg Heparin Sodium (Porcine) (Heparin) 4,000 unit IVP Q6HR PRN PRN Reason: SEE COMMENTS Stop: 10/04/17 14:15 Last Admin: 04/05/17 01:19 Dose: 4,000 unit Heparin Sodium (Porcine) (Heparin) 2,000 unit IVP Q6H PRN PRN Reason: SEE COMMENTS Stop: 10/04/17 14:15 Heparin Sodium/Dextrose (Heparin 25,000 Unit/500 Ml D5w) 25,000 unit in 500 mls @ 19.999 mls/hr IVC .Q24H TANA; 8.645 UNIT/KG/HR PRN Reason: Protocol Stop: 10/04/17 14:16 Last Titration: 04/05/17 08:45 Dose: 15.12 unit/kg/hr, 35 mls/hr Ceftriaxone Sodium 1,000 mg/ (Dextrose) 100 mls @ 200 mls/hr IVPB Q24H TANA Stop: 10/04/17 19:01 Last Infusion: 04/04/17 20:45 Dose: Infused Metoprolol Tartrate (Lopressor) 25 mg PO BID [facility] Stop: 10/04/17 21:01 Last Admin: 04/05/17 10:37 Dose: 25 mg Morphine Sulfate (Morphine Sulfate) 2 mg IVP Q2H PRN PRN Reason: Severe Pain Stop: 10/04/17 15:43 Naloxone HCl (Narcan) 0.4 mg IVP Q2MIN PRN PRN Reason: Opioid Reversal Stop: 10/04/17 15:45 Nicotine (Nicoderm) 21 mg TD DAILY TANA PRN Reason: Protocol Stop: 10/04/17 19:46 Last Admin: 04/05/17 10:40 Dose: Not Given Nitroglycerin (Nitroglycerin) 0.4 mg SL Q5MIN PRN PRN Reason: Chest Pain Stop: 10/04/17 12:19 Last Admin: 04/04/17 13:01 Dose: 0.4 mg Ondansetron HCl (Zofran) 4 mg IVP Q6HR PRN; Protocol PRN Reason: Nausea And Vomiting Stop: 10/04/17 15:43 Oxycodone/Acetaminophen (Percocet 5/325) 1 each PO Q4HR PRN PRN Reason: Severe Pain Stop: 10/04/17 15:43 - Imaging and Cardiology Echo: report reviewed Cardiac cath: report reviewed - EKG Interpretation EKG results cardiology: other (12 hr tele AVG HR 91, SR, no significant pauses or arrhythmias noted) Consult Discharge Plan - Plan Referrals: [facility]Primary Care Provider[facility] -
--- NOTE | 2017-04-05 14:02 | Discharge Summary ---
Date of Encounter: 04/05/17 Time of Encounter: 13:51 - Discharge Diagnosis (1) CAD (coronary artery disease) Priority: Primary Status: Acute Qualifiers: Qualified Code(s): I25.10 - Atherosclerotic heart disease of [place] coronary artery without angina pectoris; I25.84 - Coronary atherosclerosis due to calcified coronary lesion (2) NSTEMI (non-ST elevated myocardial infarction) Priority: Primary Status: Acute (3) Essential hypertension Priority: Secondary Status: Chronic (4) Tobacco abuse Priority: Secondary Status: Chronic (5) UTI (urinary tract infection) Priority: Secondary Status: Acute Qualifiers: Urinary tract infection type: acute cystitis Hematuria presence: without hematuria Qualified Code(s): N30.00 - Acute cystitis without hematuria - Discharge Medications Home Medications: HYDROcodone/Acet 5/325 mg [[place] 5-325 mg] 1 tab PO Q6H PRN 04/04/17 [History] Losartan Potassium [Cozaar] 100 mg PO DAILY 04/04/17 [History] Acetaminophen [Tylenol] 650 mg PO Q6HR PRN tab 04/05/17 [Rx] Aspirin 81 mg PO DAILY 04/05/17 [Rx] Atorvastatin [Lipitor] 40 mg PO HS tab 04/05/17 [Rx] Heparin 2,000 unit IVP Q6H PRN vial 04/05/17 [Rx] Heparin 4,000 unit IVP Q6HR PRN vial 04/05/17 [Rx] Metoprolol [Lopressor] 25 mg PO BID tab 04/05/17 [Rx] Morphine [Morphine Sulfate] 2 mg IVP Q2H PRN 04/05/17 [Rx] Nicotine Patch [Nicoderm] 21 mg TD DAILY 04/05/17 [Rx] Nitroglycerin 0.4 mg SL Q5MIN PRN 04/05/17 [Rx] Ondansetron [Zofran] 4 mg IVP Q6HR PRN vial 04/05/17 [Rx] Allergies/Adverse Reactions: Allergies No Known Allergies Allergy (Verified 04/04/17 11:43) Procedures/tests Complete & Pending: Procedures Performed prior 72 hours Category Date Time Status CL Cardiac Catheterization [CL] Routine 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 - Patient Status Disposition: Transfer Other Condition: Fair - Discharge Instructions Follow Up With: [facility],PCP [Primary Care Provider] - Hospital course: Mr. Portillo is a 46 year old male with PMH of HTN and tobacco abuse that presented to CT today with chief complaint of fatigue, weakness and right arm pain that started on Tuesday. He denies chest pain or back pain, denies worsening dyspnea or any lower extremity edema. No prior cardiac hx. Troponin at CT found to be 1.32 and pt was transferred to [facility] for further care. Here his initial Troponin was 1.10. Pt was started on heparin gtt, and he was evaluated by Cardiology and went for C which showed severe 3 vessel CAD--60% pLAD, 80% mLAD, 95% 1st marginal, 100% mRCA with collaterals feeding left to right. His 2 D Echo showed normal LVEF @ 60-55%. At this point Maintenance Painter Apprentice recommend to continue heparin gtt and consult CT surgeon for posisble CABG evaluation. Pt and his family wanted to go to [facility] for higher level of care. So I reached out to [place] [facility], and talked to the transfer center nurse. They gracefully accepted the pt for further care. So will d/c him to [place] CTS surgeon unit. - Time Spent with Patient Total time spent providing and/or coordinating discharge services: - Constitutional Vitals: Temp Pulse Resp BP Pulse Ox 98 F 92 15 127/82 96 04/05/17 11:33 04/05/17 11:33 04/05/17 11:33 04/05/17 11:33 04/05/17 11:33 General appearance: Present: A&O X 3, no acute distress - Head Head exam: Present: atraumatic, normal inspection - Respiratory Respiratory exam: Present: decreased breath sounds, wheezes. Absent: rales, respiratory distress, rhonchi - Cardiovascular Cardiovascular exam: Present: RRR, +S1, +S2. Absent: diastolic murmur, gallop, rubs, systolic murmur - GI/Abdominal GI/Abdominal exam: Present: distended, soft. Absent: guarding, rebound, rigid, tenderness - Extremities Exam Extremities exam: Absent: calf tenderness, pedal edema, tenderness - Neurological Exam Neurological exam: Present: alert, oriented X3 - Psychiatric Psychiatric exam: Present: normal affect, normal mood
[2017-04-05] MEDS: Heparin 25,000 UNIT/500 ML D5W 25,000 UNIT/500 ML MLS IVC SCH (15:26)
[2017-04-06] MEDS: Heparin 25,000 UNIT/500 ML D5W 25,000 UNIT/500 ML MLS IVC SCH (01:08)
[2017-04-06] MEDS: Aspirin 81 MG TAB.CHEW PO SCH (08:21)
--- NOTE | 2017-04-06 08:25 | Cardiothoracic Consult Note ---
Date of Encounter: 04/06/17 Time of Encounter: 08:23 Assessment and Plan (1) NSTEMI (non-ST elevated myocardial infarction) Current Visit: Yes Status: Acute The assessment and plan as outlined above was discussed with the patient and/or family members who expressed understanding and agreement. All questions were answered. The patient is a candidate for coronary artery bypass grafting. The procedure, its risks benefits and alternatives were explained and he does wish to proceed. We will tentatively schedule him for Tuesday. - History of Present Illness History of present illness: Mr. Portillo is a 46 year old male History of present illness. The patient is a 46-year-old gentleman who presented with right arm pain and a myocardial infarction with a troponin of 1.32. No previous history of angina. Cardiac catheterization revealed triple vessel disease with preserved left ventricular function. Echocardiogram revealed no valvular disease. He is presently chest pain free on a heparin drip. Past medical history is notable for hypertension. No history of diabetes or hypercholesterolemia. Social history. He lives with his 2 children. 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 He smokes 1-1/2 packs of cigarettes per day. Rarely drinks alcohol. Family history is negative for coronary artery disease. Review of systems is negative for saphenous vein varicosities or strippings. Negative for stroke or TIA. Past Med Surg Social Fam HX - Past Medical History Medical history: hypertension Psychiatric history: depression, PTSD - Social History Smoking Status: Current every day smoker Packs per day: 1 Smokeless Tobacco Status: No Alcohol use: none Drug use: none - Family History Mother Living Status: Still Living Hx Family Cardiac Disorders: No Hx Family Respiratory Disorders: No Hx Family Cancer: No Hx Family GI Disorders: No Hx Family Genitourinary Disorders: No Hx Family Endocrine Disorder: No Hx Family Musculoskeletal Disorders: No Hx Family Neuromuscular Disorders: No Hx Family Neurologic Disorders: No Hx Family HEENT Disorders: No Hx Family Autoimmune Disorders: No Hx Family Reproductive Disorders: No Hx Family Psychosocial Disorders: No Hx Family Medical Disorders: No Grandfather Living Status: Hx Family Cancer: Yes (lung) Grandmother Living Status: Hx Family Cardiac Disorders: Yes Hx Family Cancer: Yes Medications and Allergies HYDROcodone/Acet 5/325 mg [[place] 5-325 mg] 1 tab PO Q6H PRN 04/04/17 [History] Losartan Potassium [Cozaar] 100 mg PO DAILY 04/04/17 [History] Acetaminophen [Tylenol] 650 mg PO Q6HR PRN tab 04/05/17 [Rx] Aspirin 81 mg PO DAILY 04/05/17 [Rx] Atorvastatin [Lipitor] 40 mg PO HS tab 04/05/17 [Rx] Heparin 2,000 unit IVP Q6H PRN vial 04/05/17 [Rx] Heparin 4,000 unit IVP Q6HR PRN vial 04/05/17 [Rx] Metoprolol [Lopressor] 25 mg PO BID tab 04/05/17 [Rx] Morphine [Morphine Sulfate] 2 mg IVP Q2H PRN 04/05/17 [Rx] Nicotine Patch [Nicoderm] 21 mg TD DAILY 04/05/17 [Rx] Nitroglycerin 0.4 mg SL Q5MIN PRN 04/05/17 [Rx] Ondansetron [Zofran] 4 mg IVP Q6HR PRN vial 04/05/17 [Rx] Allergies No Known Allergies Allergy (Verified 04/04/17 11:43) All Systems Review: A 10-system review of systems was performed and is negative for pertinent findings except as documented above in the HPI. Physical Examination Vital Signs, Last 4 Hours Temp Pulse Resp BP Pulse Ox 04/06/17 07:36 98.3 F 82 17 109/75 93 Pupils are equal, round and reactive to light and accommodation. No oral lesions. Neck is supple. Trachea in the midline. No thyromegaly or carotid bruits. Lungs are clear to percussion and auscultation. Heart is in a normal sinus rhythm. No murmurs, gallops or rubs. Abdomen is benign. No tenderness, rebound or guarding. Extremities without edema. 2+ pulses. No saphenous vein varicosities or strippings. Cranial nerves, motor and sensory intact. Results 04/04/17 14:57 04/05/17 00:54 Lab Results, Last 24 hours 04/05/17 04/06/17 20:59 03:56 APTT 67.8 H 82.7 H Consult Discharge Plan - Plan Referrals: [facility],PC[facility] [Primary Care Provider] -
[2017-04-06] MEDS: Nicotine 21 MG PATCH.TD24 TD SCH (13:32)
--- NOTE | 2017-04-06 14:42 | Internal Med Progress Note ---
Date of Encounter: 04/06/17 Time of Encounter: 14:37 - Assessment and plan (1) CAD (coronary artery disease) Current Visit: Yes Status: Acute Assessment and plan: s/p LHC - showed severe 3 vessel CAD--60% pLAD, 80% mLAD, 95% 1st marginal, 100 % mRCA with collaterals feeding left to right. 2 D Echo showed normal LVEF @ 60-55% Y/D pt wanted to transfer to [facility] for CABG to be done there. I did talk to [facility] and everything arrange for him Later pt changed his mind and did talk to our CT surgeon here. Now he is scheduled for CABG on Tuesday Will continue Heparin gtt for now Cont ASA, B bcloker and Statin Cont close monitoring Qualifiers: Qualified Code(s): I25.10 - Atherosclerotic heart disease of [place] coronary artery without angina pectoris; I25.84 - Coronary atherosclerosis due to calcified coronary lesion (2) NSTEMI (non-ST elevated myocardial infarction) Current Visit: Yes Status: Acute (3) Essential hypertension Current Visit: Yes Status: Chronic Assessment and plan: stable with current med Metoprolol (4) Tobacco abuse Current Visit: Yes Status: Chronic Assessment and plan: counseled to quit on nicotine patch (5) UTI (urinary tract infection) Current Visit: Yes Status: Ruled-out Assessment and plan: His Urine cx did not grow any bacteria so will d/c Abx Qualifiers: Urinary tract infection type: acute cystitis Hematuria presence: without hematuria Qualified Code(s): N30.00 - Acute cystitis without hematuria (6) DVT prophylaxis Current Visit: Yes Status: Acute Assessment and plan: on Heparin gtt - Subjective Interval history: Mr. Portillo is a 46 year old male with PMH of HTN and tobacco abuse that presented to [facility] today with chief complaint of fatigue, weakness and right arm pain that started on Tuesday. He denies chest pain or back pain, denies worsening dyspnea or any lower extremity edema. No prior cardiac hx. Troponin at [place] found to be 1.32 and pt was transferred to [facility] for further care. Here his initial Troponin was 1.10. Pt was started on heparin gtt, and he was evaluated by Cardiology and went for [facility] which showed severe 3 vessel CAD--60% pLAD, 80% mLAD, 95% 1st marginal, 100% mRCA with collaterals feeding left to right. Pt denied any more CP / SOB. No events over night - Constitutional Vitals: Temp Pulse Resp BP Pulse Ox 98.3 F 82 17 109/75 93 04/06/17 07:36 04/06/17 07:36 04/06/17 07:36 04/06/17 07:36 04/06/17 07:36 General appearance: Present: A&O X 3, no acute distress - Head Head exam: Present: atraumatic, normal inspection - Respiratory Respiratory exam: Present: decreased breath sounds, wheezes. Absent: rales, respiratory distress, rhonchi - Cardiovascular Cardiovascular exam: Present: RRR, +S1, +S2. Absent: systolic murmur - GI/Abdominal GI/Abdominal exam: Present: soft. Absent: rebound, rigid, tenderness - Extremities Exam Extremities exam: Absent: calf tenderness, pedal edema, tenderness - Neurological Exam Neurological exam: Present: alert, oriented X3 - Psychiatric Psychiatric exam: Present: normal affect, normal mood Internal Medicine: Result - Labs CBC & Chem 7: 04/04/17 14:57 04/05/17 00:54 - ABG Interpretation ABG results: PT/INR, D-dimer PT 12.1 Seconds (9.4-12.1) 04/04/17 14:57 Consult Discharge Plan - Plan Referrals: [facility],PCP [Primary Care Provider] -
[2017-04-07] MEDS: Heparin 25,000 UNIT/500 ML D5W 25,000 UNIT/500 ML MLS IVC SCH ×2 (04:25→17:13)
[2017-04-07 04:49] LABS: Basophils # 0.1 K/mcL (0.0-0.2); Basophils % 0.7 %; Eosinophils # 0.4 K/mcL (0.0-0.6); Eosinophils % 2.6 %; Hematocrit 47.2 % (37.5-50.1); Hemoglobin 16.2 g/dL (12.9-16.9); Immature Granulocytes % 0.6 % (0-4); Lymphocytes # 3.6 K/mcL (0.6-4.6); Lymphocytes % 26.9 %; Mean Corpuscular HGB Conc 34.3 g/dL (31.6-35.5); Mean Corpuscular Volume 93.1 fL (83.0-100.0); Mean Platelet Volume 10.7 fL (9.4-12.4); Monocytes # 1.5 K/mcL (0.0-1.3); Neutrophils # 7.8 K/mcL (1.6-8.9); Platelet Count 217 K/mcL (140-400); Red Blood Count 5.07 M/mcL (4.19-5.50); Red Cell Distribution Width 13.2 % (11.5-14.5); Segmented Neutrophils % 58.2 %
[2017-04-07 05:13] LABS: BUN/Creatinine Ratio 11 (6-26); Blood Urea Nitrogen 11 mg/dL (8-26); Calcium 9.3 mg/dL (8.6-10.8); Carbon Dioxide 23 mEq/L (19-29); Chloride 106 mEq/L (98-109); Glucose 103 mg/dL (70-99); Osmolality,Calculated 286 (280-300); Potassium 4.1 mEq/L (3.5-4.5); Sodium 138 mEq/L (136-145); eGFR For African Americans > 60 (> 60); eGFR For Non-African Americans > 60 (> 60)
--- NOTE | 2017-04-07 07:07 | Cardiothoracic Progress Note ---
Date of Encounter: 04/07/17 Time of Encounter: 07:05 - Assessment and plan (1) NSTEMI (non-ST elevated myocardial infarction) Current Visit: Yes Status: Acute Consent was obtained. He has no questions. We will discontinue the heparin drip at 5 AM tomorrow morning. - Subjective Interval history: The patient has no chest pain and no angina. Vital Signs, Last 4 Hours Temp Pulse Resp BP Pulse Ox 04/07/17 03:34 98.1 F 71 15 121/80 95 Clinical Data, last 8 Hours Output, Urine Amount 350 Output, Urine Amount 500 Weight 04/05/17 04/06/17 04/07/17 23:59 23:59 23:59 Weight 118.07 kg 117.027 kg Lungs are clear to percussion and auscultation. Heart is in a normal sinus rhythm. - Labs 04/07/17 04:11 04/07/17 04:11 Lab Results, Last 24 hours 04/07/17 04/07/17 04/07/17 04:11 04:11 04:11 WBC 13.4 H Hgb 16.2 Hct 47.2 Plt Count 217 APTT 69.5 H Sodium 138 Potassium 4.1 Chloride 106 Carbon Dioxide 23 BUN 11 Creatinine 1.02 Glucose 103 H Calcium 9.3 Consult Discharge Plan - Plan Referrals: [facility],PCP [Primary Care Provider] -
[2017-04-07] MEDS ORDERED: ceFAZolin 2,000 MG in D5% in Water 100 ML IVPB ONE (07:08)
[2017-04-07 08:16] LABS: Chol/HDL Ratio 5.8 (0-4.9); Cholesterol 144 mg/dL (< 200); HDL Cholesterol 25 mg/dL (40-59); LDL Cholesterol,Calculated 84 mg/dL (0-99); Triglycerides 177 mg/dL (< 150)
[2017-04-07 08:47] LABS: Hemoglobin A1C 5.5 %
[2017-04-07] MEDS: Aspirin 81 MG TAB.CHEW PO SCH (10:42)
[2017-04-07] MEDS: Chlorhexidine Rinse 15 ML MOUTHWASH MM SCH ×2 (10:42→20:39)
[2017-04-07] MEDS: Nicotine 21 MG PATCH.TD24 TD SCH (10:56)
--- NOTE | 2017-04-07 16:34 | Internal Med Progress Note ---
Date of Encounter: 04/07/17 Time of Encounter: 16:31 - Assessment and plan (1) CAD (coronary artery disease) Current Visit: Yes Status: Acute Assessment and plan: s/p LHC - showed severe 3 vessel CAD--60% pLAD, 80% mLAD, 95% 1st marginal, 100 % mRCA with collaterals feeding left to right. 2 D Echo showed normal LVEF @ 60-55% Scheduled for CABG in AM Continue Heparin gtt till tomorrow morning 5.00 AM Cont ASA, B bcloker and Statin Cont close monitoring Pt is going to be under Dr. Khan's service from tomorrow morning after CABG. Will sign off on his care for now. Qualifiers: Qualified Code(s): I25.10 - Atherosclerotic heart disease of [place] coronary artery without angina pectoris; I25.84 - Coronary atherosclerosis due to calcified coronary lesion (2) NSTEMI (non-ST elevated myocardial infarction) Current Visit: Yes Status: Acute (3) Essential hypertension Current Visit: Yes Status: Chronic Assessment and plan: stable with current med Metoprolol (4) Tobacco abuse Current Visit: Yes Status: Chronic Assessment and plan: counseled to quit on nicotine patch (5) UTI (urinary tract infection) Current Visit: Yes Status: Ruled-out Assessment and plan: His Urine cx did not grow any bacteria d/c Abx Qualifiers: Urinary tract infection type: acute cystitis Hematuria presence: without hematuria Qualified Code(s): N30.00 - Acute cystitis without hematuria (6) DVT prophylaxis Current Visit: Yes Status: Acute Assessment and plan: on Heparin gtt - Subjective Interval history: Mr. Portillo is a 46 year old male with PMH of HTN and tobacco abuse that presented to [place] today with chief complaint of fatigue, weakness and right arm pain that started on Tuesday. He denies chest pain or back pain, denies worsening dyspnea or any lower extremity edema. No prior cardiac hx. Troponin at [place] found to be 1.32 and pt was transferred to [facility] for further care. Here his initial Troponin was 1.10. Pt was started on heparin gtt, and he was evaluated by Cardiology and went for C which showed severe 3 vessel CAD--60% pLAD, 80% mLAD, 95% 1st marginal, 100% mRCA with collaterals feeding left to right. Pt denied any more CP / SOB. No events over night - Constitutional Vitals: Temp Pulse Resp BP Pulse Ox 98.3 F 69 16 111/66 94 04/07/17 16:10 04/07/17 16:10 04/07/17 16:10 04/07/17 16:10 04/07/17 16:10 General appearance: Present: A&O X 3, no acute distress - Head Head exam: Present: atraumatic, normal inspection - Neck Neck exam general surgery: Present: supple - Respiratory Respiratory exam: Present: decreased breath sounds, wheezes. Absent: rales, respiratory distress, rhonchi - Cardiovascular Cardiovascular exam: Present: RRR, +S1, +S2. Absent: systolic murmur - GI/Abdominal GI/Abdominal exam: Present: soft. Absent: tenderness - Extremities Exam Extremities exam: Absent: calf tenderness, pedal edema, tenderness - Neurological Exam Neurological exam: Present: alert, oriented X3 - Psychiatric Psychiatric exam: Present: normal affect, normal mood Internal Medicine: Result - Labs CBC & Chem 7: 04/07/17 04:11 04/07/17 04:11 Labs: Short CBC 04/07/17 Range/Units 04:11 WBC 13.4 H (4.3-11.1) K/mcL Hgb 16.2 (12.9-16.9) g/dL Hct 47.2 (37.5-50.1) % Plt Count 217 (140-400) K/mcL Neutrophils # 7.8 (1.6-8.9) K/mcL BMP 04/07/17 04:11 Sodium 138 Potassium 4.1 Chloride 106 Carbon Dioxide 23 BUN 11 Creatinine 1.02 Glucose 103 H Calcium 9.3 - ABG Interpretation ABG results: PT/INR, D-dimer PT 12.1 Seconds (9.4-12.1) 04/04/17 14:57 Consult Discharge Plan - Plan Referrals: [facility],PCP [Primary Care Provider] -
[2017-04-08 06:18] LABS: Basophils # 0.1 K/mcL (0.0-0.2); Basophils % 0.7 %; Eosinophils # 0.3 K/mcL (0.0-0.6); Eosinophils % 2.5 %; Hematocrit 47.5 % (37.5-50.1); Hemoglobin 16.3 g/dL (12.9-16.9); Immature Granulocytes % 0.5 % (0-4); Lymphocytes # 3.3 K/mcL (0.6-4.6); Lymphocytes % 27.1 %; Mean Corpuscular HGB Conc 34.3 g/dL (31.6-35.5); Mean Corpuscular Hemoglobin 31.8 pg (28.0-33.3); Mean Corpuscular Volume 92.6 fL (83.0-100.0); Monocytes # 1.2 K/mcL (0.0-1.3); Monocytes % 9.8 %; Neutrophils # 7.2 K/mcL (1.6-8.9); Platelet Count 239 K/mcL (140-400); Red Blood Count 5.13 M/mcL (4.19-5.50); Segmented Neutrophils % 59.4 %
[2017-04-08 06:26] LABS: BUN/Creatinine Ratio 11 (6-26); Blood Urea Nitrogen 12 mg/dL (8-26); Calcium 9.3 mg/dL (8.6-10.8); Carbon Dioxide 23 mEq/L (19-29); Chloride 108 mEq/L (98-109); Glucose 106 mg/dL (70-99); Magnesium 2.2 mg/dL (1.6-2.6); Osmolality,Calculated 288 (280-300); Potassium 4.1 mEq/L (3.5-4.5); Sodium 139 mEq/L (136-145); eGFR For African Americans > 60 (> 60); eGFR For Non-African Americans > 60 (> 60)
[2017-04-08] MEDS: Aspirin 81 MG TAB.CHEW PO SCH (06:29)
[2017-04-08] MEDS ORDERED: *HR* Propofol 200 MG/20 ML VIAL IVP ONE ×2 (07:09→09:46)
[2017-04-08] MEDS ORDERED: *HR* Midazolam HCl 5 MG/5 ML VIAL IVP ONE ×2 (07:09→10:31)
[2017-04-08] MEDS ORDERED: *HR* FentaNYL (PF) 1,000 MCG/20 ML VIAL ONE (07:09)
[2017-04-08] MEDS ORDERED: Nitroglycerin 25 MG/250 ML INFUS..BTL IVC ONE ×2 (07:35→10:14)
[2017-04-08] MEDS ORDERED: *HR* Rocuronium Bromide 50 MG/5 ML VIAL ONE (10:46)
[2017-04-08] MEDS ORDERED: *HR* Heparin 5,000 UNIT/ML VIAL ONE (10:46)
[2017-04-08] MEDS ORDERED: Lidocaine 2% Syringe 100 MG/5 ML ONE (10:46)
[2017-04-08] MEDS ORDERED: *HR* Norepinephrine 4 MG/4 ML VIAL IVC ONE (10:46)
[2017-04-08] MEDS ORDERED: Tranexamic Acid 1,000 MG/10 ML VIAL ONE (10:46)
[2017-04-08] MEDS ORDERED: Protamine Sulfate 250 MG/25 ML VIAL IVP ONE (10:46)
[2017-04-08] MEDS ORDERED: *HR* Succinylcholine 200 MG/10 ML VIAL IVP ONE (10:47)
[2017-04-08] MEDS ORDERED: Protamine Sulfate 50 MG/5 ML VIAL IVP ONE (10:47)
[2017-04-08] MEDS ORDERED: Magnesium Sulfate 2 GM in D5% in Water 100 ML IVPB PRN (12:27)
[2017-04-08] MEDS ORDERED: Calcium Chloride 1,000 MG in 0.9 % Sodium Chloride 100 ML IVPB PRN (12:27)
[2017-04-08] MEDS ORDERED: Insulin Regular, Human 100 UNIT/ML IV PRN (12:27)
[2017-04-08] MEDS ORDERED: Potassium Chloride 40 MEQ/200 ML BAG IVPB PRN (12:27)
[2017-04-08] MEDS ORDERED: Acetaminophen 650 MG RECTAL SUPP RC PRN (12:27)
[2017-04-08] MEDS ORDERED: *HR* Dextrose 50 % in Water (Syg) 50 ML SYRINGE IVP PRN (12:27)
--- NOTE | 2017-04-08 12:27 | Operative Note ---
Date of procedure: 04/08/17 Pre-op diagnosis: NSTEMI Post-op diagnosis: same Procedure: 1. CABG4 (LARA to LAD, sequential saphenous vein graft to D1 and OM1, saphenous vein graft to PDA). 2. Endoscopic vein harvesting, greater saphenous vein from right lower extremity. Implants: None. Complications: None. Anesthesia: KILEY Surgeon: Annette Gilbert Extrusion Press Operator: Fidencio Villegas Specimen: None. Condition: stable Disposition: ICU Procedure in Detail: INDICATIONS FOR OPERATION: The patient is a 76-year-old hypertensive man with long smoking history who developed right arm pain and tingling April 04, 2017. He was evaluated at the [facility] and found to have elevated troponin I levels consistent with an acute NSTEMI. He underwent urgent cardiac catheterization was found to have severe 3 vessel CAD and an LVEF 60%. In particular, the patient had tandem 60% proximal and mid LAD lesions, a 90% proximal OM1 lesion, and a completely occluded proximal RCA which fills distally via [id number] collaterals. He was been recommended for CABG. FINDINGS AT OPERATION: The aorta was of normal caliber without calcification. The coronary arteries measure approximately 2-3 mm in diameter had mild distal disease. The greater saphenous vein was harvested endoscopically from the right lower extremity from the knee to the groin. Total bypass time was 86 minutes, cross-clamp time 49 minutes, tensional hypothermia 34C. DESCRIPTION OF OPERATION: After obtaining informed consent from the patient, he was taken to the operating room where a satisfactory general endotracheal anesthetic was induced. Appropriate monitoring lines were placed, and the patient's chest, abdomen, and lower extremities were prepped and draped in a sterile fashion. The greater saphenous vein was harvested endoscopically from the right lower extremity from the knee to the groin. The vein was removed, distended, and found to be of good quality. The subcutaneous tissue and skin edges were reapproximated using running Vicryl sutures. Simultaneously, a standard median sternotomy incision was made and the sternum divided. The LARA was taken down from its bed and side branches divided between hemoclips. The sternum was , and the pericardium was opened and reflected laterally. The patient was prepared for cannulation by placing pursestring sutures in the distal ascending aorta, mid-ascending aorta, and right atrial appendage. The patient was heparinized when the ACT was greater than 200 seconds, the distal ascending aorta was cannulated followed by placement of a dual stage venous cannula through the right atrial appendage and into the inferior vena cava. A stab-in antegrade metabolic and was placed in mid -ascending aorta. The patient was placed on bypass and temperature allowed to drift 34C. The distal targets were identified and the aorta was crossclamped. The patient received 700 cc of cold antegrade crystalloid cardioplegia through the aortic root and the patient's heart obtain rapid diastolic arrest. The PDA was opened with a [place] blade and the vein was anastomosed in an end-to -side fashion using running 7-0 Prolene suture. The anastomosis found to be hemostatic and the patient stated no dose of cold antegrade crystalloid cardioplegia to both the aortic root and the vein graft due to myocardial activity noted during this graft. The OM1 was opened to be ablated the vein was anastomosed in an end-to-side fashion using running 7-0 Prolene suture. The anastomosis found to be hemostatic. D1 branch was opened with a [place] blade and the vein was opened in a longitudinal fashion so the [id number] anastomosis could be completed using running 7-0 Prolene suture. The anastomosis was found to be hemostatic. Finally, the LAD was opened. Blade and the LARA was anastomosed in an end-to-side fashion using running 7-0 Prolene suture. The anastomosis found to be hemostatic and the mammary pedicle was tacked to the epicardium using interrupted 5-0 silk suture. Rewarming was begun during this anastomosis. The aortic cross-clamp was released and the heart distended. The veins were measured and cut at appropriate lengths. A partial occluding clamp was then placed across the midascending aorta and the antegrade cardioplegia cannula was removed. Additional aortotomy site was then made an 11 blade and both sides were enlarged with a 4 mm punch. The veins were anastomosed in an end-to-side fashion to to the aorta using running 5-0 Prolene suture. The vein grafts were occluded with a bulldog clamp and de-aired with a 25-gauge needle prior to removing the partial occluding clamp. The proximal distal anastomoses found to be hemostatic and the proximal anastomoses were marked with radiopaque loops. Two right ventricular temporary pacers placed, and 3 chest suture placed, 2 in the mediastinum once the left pleural space. During rewarming the patient's heart regained normal sinus rhythm spontaneously. The patient's systemic temperature is 36C he is ventilator received volume. He required no inotropic support; however, his O2 saturation is dropped from 100% to 79% after a couple of minutes. The patient was placed back on bypass and the ET tube was suctioned. A large amount of mucus was withdrawn from the ET tube. The patient was then slowly weaned from bypass and allowed to ventilate for several minutes prior to beginning the protamine. Once protamine was administered the aortic and venous cannulas were removed. The pursestring suture were secured. The venous cannulation site was reinforced with a running 4-0 Prolene suture. The pericardium was loosely approximated over the heart. The sternum was reapproximated using double wires and the pectoralis major fascia, rectus abdominis fascia, subcutaneous tissue, and skin edges were reapproximated using running Vicryl sutures. A negative pressure sterile dressing was placed on the sternotomy incision. The patient was transferred to the ICU in satisfactory postoperative condition. There were no intraoperative complications, and the instrument, needle, and sponge count were correct at end of operation. - Open Heart Detail NORA (Internal Mammary Artery) Usage: Yes Cardiopulmonary Bypass Time (mins): 86 Aortic Cross Clamp Time (mins): 49 Intentional Hypothermia Temperature (C.): 34
[2017-04-08] MEDS ORDERED: 0.9 % Sodium Chloride w KCl 20 MEQ/1,000 ML MLS IVC SCH (12:30)
[2017-04-08] MEDS: Nitroglycerin 25 MG/250 ML INFUS..BTL IVC SCH (12:30)
[2017-04-08 12:54] LABS: ABG Base Excess 0.5 mEq/L (-2.0 to 3.0); ABG Oxygen Saturation 94 % (95-98); ABG PCO2 50 mmHg (35-45); ABG PO2 77 mmHg (85-104); ABG TCO2 28.5 mEq/L (20-26); Basophils # 0.1 K/mcL (0.0-0.2); Basophils % 0.3 %; Eosinophils # 0.2 K/mcL (0.0-0.6); Hematocrit 38.8 % (37.5-50.1); Lymphocytes # 2.2 K/mcL (0.6-4.6); Lymphocytes % 13.3 %; Mean Corpuscular HGB Conc 32.7 g/dL (31.6-35.5); Mean Corpuscular Hemoglobin 30.7 pg (28.0-33.3); Mean Corpuscular Volume 93.7 fL (83.0-100.0); Mean Platelet Volume 10.2 fL (9.4-12.4); Monocytes # 1.3 K/mcL (0.0-1.3); Monocytes % 7.5 %; Neutrophils # 12.9 K/mcL (1.6-8.9); Platelet Count 103 K/mcL (140-400); Red Blood Count 4.14 M/mcL (4.19-5.50); Red Cell Distribution Width 12.8 % (11.5-14.5); Segmented Neutrophils % 76.9 %
[2017-04-08 12:58] LABS: ABG PH 7.34 pH Units (7.32-7.45); Blood Gas FiO2 60 %
[2017-04-08] MEDS: *HR* Morphine 2 MG/ML SYRINGE IVP PRN ×4 (13:02→22:44)
[2017-04-08 13:03] LABS: Hemoglobin 12.7 g/dL (12.9-16.9)
[2017-04-08 13:06] LABS: BUN/Creatinine Ratio 13 (6-26); Blood Urea Nitrogen 11 mg/dL (8-26); Carbon Dioxide 27 mEq/L (19-29); Chloride 108 mEq/L (98-109); Glucose 120 mg/dL (70-99); INR 1.3; Magnesium 2.3 mg/dL (1.6-2.6); Osmolality,Calculated 287 (280-300); eGFR For African Americans > 60 (> 60); eGFR For Non-African Americans > 60 (> 60)
[2017-04-08 13:09] LABS: Activated Partial Thrombo Time 27.7 Seconds (26.0-36.0)
[2017-04-08 13:10] LABS: Calcium 7.4 mg/dL (8.6-10.8)
[2017-04-08 13:11] LABS: Sodium 138 mEq/L (136-145)
--- NOTE | 2017-04-08 13:39 | Pulmonology Consult Note ---
<Chester Melara - Last Filed: 04/08/17 15:20> Date of Encounter: 04/08/17 Time of Encounter: 13:39 Assessment and Plan (1) Acute respiratory failure with hypoxia Current Visit: Yes Status: Acute Pulm consulted due to acute resp failure with hypoxia secondary to suspected COPD with 20 pack year smoking hx. Not previously diagnosed with COPD, never on any home medications for COPD such as inhalers, steroids. Currently, patient is on ventilator s/p CABGx4 today on 04/08/2017; AC mode, FiO2 60%, PEEP 5, TV 500, RR 16, satting 91%. Ian 3. Will work on weaning settings; switch to CPAP and then wean FiO2 and PEEP as tolerated. (2) Tobacco abuse Current Visit: Yes Status: Chronic [id number]-[id number] smoking history. We will stress importance of smoking cessation once patient is more alert. (3) S/P CABG x 4 Current Visit: Yes Status: Acute (4) CAD (coronary artery disease) Current Visit: Yes Status: Acute Qualifiers: Coronary Disease-Associated Artery/Lesion type: bypass graft, autologous vein Associated angina: angina presence unspecified Qualified Code(s): I25.810 - Atherosclerosis of coronary artery bypass graft(s) without angina pectoris (5) Essential hypertension Current Visit: Yes Status: Chronic (6) NSTEMI (non-ST elevated myocardial infarction) Current Visit: Yes Status: Acute (7) DVT prophylaxis Current Visit: Yes Status: Acute History of Present Illness Consult date: 04/08/17 Requesting physician: Annette Gilbert Reason for consult: other (vent management, smoking history (possible COPD)) Chief complaint: ventilator dependent History of present illness: Patient is a 46-year-old male who underwent CABG 4 and endoscopic vein harvesting in the greater saphenous of the right lower extremity today on 2016. He is a long smoking history, significant other estimates approximately 20 pack years. Patient has returned back to ICU and is on ventilator, satting in low 90s. Pulmonology consulted for vent management and mgmt of possible COPD. Family states that patient has never officially been diagnosed with COPD , has never used any inhalers at home, does not use steroids or prednisone. Currently, patient is on ventilator, AC mode, FiO2 60%, PEEP 5, TV 500, RR 16, satting 91%. Past Med Surg Social Fam HX - Past Medical History Medical history: hypertension Psychiatric history: depression, PTSD - Social History Smoking Status: Current every day smoker Packs per day: 1 Smokeless Tobacco Status: No Alcohol use: none Drug use: none - Family History Mother Living Status: Still Living Hx Family Cardiac Disorders: No Hx Family Respiratory Disorders: No Hx Family Cancer: No Hx Family GI Disorders: No Hx Family Genitourinary Disorders: No Hx Family Endocrine Disorder: No Hx Family Musculoskeletal Disorders: No Hx Family Neuromuscular Disorders: No Hx Family Neurologic Disorders: No Hx Family HEENT Disorders: No Hx Family Autoimmune Disorders: No Hx Family Reproductive Disorders: No Hx Family Psychosocial Disorders: No Hx Family Medical Disorders: No Grandfather Living Status: Hx Family Cancer: Yes (lung) Grandmother Living Status: Hx Family Cardiac Disorders: Yes Hx Family Cancer: Yes Medications and Allergies HYDROcodone/Acet 5/325 mg [Cool 5-325 mg] 1 tab PO Q6H PRN 04/04/17 [History] Losartan Potassium [Cozaar] 100 mg PO DAILY 04/04/17 [History] Acetaminophen [Tylenol] 650 mg PO Q6HR PRN tab 04/05/17 [Rx] Aspirin 81 mg PO DAILY 04/05/17 [Rx] Atorvastatin [Lipitor] 40 mg PO HS tab 04/05/17 [Rx] Heparin 2,000 unit IVP Q6H PRN vial 04/05/17 [Rx] Heparin 4,000 unit IVP Q6HR PRN vial 04/05/17 [Rx] Metoprolol [Lopressor] 25 mg PO BID tab 04/05/17 [Rx] Morphine [Morphine Sulfate] 2 mg IVP Q2H PRN 04/05/17 [Rx] Nicotine Patch [Nicoderm] 21 mg TD DAILY 04/05/17 [Rx] Nitroglycerin 0.4 mg SL Q5MIN PRN 04/05/17 [Rx] Ondansetron [Zofran] 4 mg IVP Q6HR PRN vial 04/05/17 [Rx] Allergies No Known Allergies Allergy (Verified 04/04/17 11:43) ROS unobtainable: due to mental status, other (due to intubation) All Systems: A 10-system review of systems was performed and is negative for pertinent findings except as documented above in the HPI. Physical Examination Vital Signs: Vital Signs, Last 4 Hours Resp BP Pulse Ox 04/08/17 12:59 14 119/67 95 General appearance: other (sedated, [place] 3, will open eyes but very sleepy on exam. ) Eyes: nonicteric ENT: oropharynx moist, other (ET tube placed) Neck: supple Effort: other (patient is on ventilator, AC mode, FiO2 60%, PEEP 5, TV 500, RR 16, satting 91%.) Auscultation: bilateral: wheezes (very mild wheeze bilateral lobes ) Cardiovascular: regular rate and rhythm Gastrointestinal: normoactive bowel sounds, non-distended Integumentary: normal Extremities: no cyanosis, no edema Musculoskeletal: no deformities, ROM normal other (sedated, [place] 3, will open eyes but very sleepy on exam. Moving all extremities but not following commands.) other (sedated) Ventilator Settings Ventilator Settings: Ventilator Settings, Last 8 Hours Ventilator Mode A/C Ventilator Mode A/C Ventilator Tidal Volume 600 Setting Ventilator Tidal Volume 600 Setting Ventilator Respiratory Rate 14 Setting Ventilator Respiratory Rate 14 Setting Actual Respiratory Rate 14 Positive End Expiratory 5 Pressure Positive End Expiratory 5 Pressure Peak Inspiratory Airway 29 Pressure Results - Laboratory Findings CBC and BMP: 04/08/17 12:40 04/08/17 12:40 ABG ABG pH 7.34 pH Units (7.32-7.45) 04/08/17 12:40 ABG pCO2 50 mmHg (35-45) H 04/08/17 12:40 ABG pO2 77 mmHg (85-104) L 04/08/17 12:40 ABG O2 Saturation 94 % (95-98) L 04/08/17 12:40 PT/INR, D-dimer PT 14.0 Seconds (9.4-12.1) H 04/08/17 12:40 Abnormal lab findings: Abnormal lab results WBC 16.8 K/mcL (4.3-11.1) H 04/08/17 12:40 RBC 4.14 M/mcL (4.19-5.50) L 04/08/17 12:40 Hgb 12.7 g/dL (12.9-16.9) L D 04/08/17 12:40 Plt Count 103 K/mcL (140-400) L D 04/08/17 12:40 Neutrophils # 12.9 K/mcL (1.6-8.9) H 04/08/17 12:40 PT 14.0 Seconds (9.4-12.1) H 04/08/17 12:40 Heparin Anti-Xa, Unfract 0.90 IU/mL (0.30-0.70) H 04/04/17 14:57 ABG pCO2 50 mmHg (35-45) H 04/08/17 12:40 ABG pO2 77 mmHg (85-104) L 04/08/17 12:40 ABG Total CO2 28.5 mEq/L (20-26) H 04/08/17 12:40 ABG O2 Saturation 94 % (95-98) L 04/08/17 12:40 Glucose 120 mg/dL (70-99) H 04/08/17 12:40 POC Glucose 103 (58-89) H 04/08/17 13:15 Calcium 7.4 mg/dL (8.6-10.8) L D 04/08/17 12:40 Troponin I 1.10 ng/mL (0-0.03) H* 04/04/17 13:00 Triglycerides 177 mg/dL (< 150) H 04/07/17 04:11 VLDL Cholesterol, Calc 35 mg/dL (< 31) H 04/07/17 04:11 HDL Cholesterol 25 mg/dL (40-59) L 04/07/17 04:11 Cholesterol/HDL Ratio 5.8 (0-4.9) H 04/07/17 04:11 Ur Specific [place] 1.028 (1.010-1.025) H 04/04/17 20:12 Ur Leukocyte Esterase Small (Negative) H 04/04/17 20:12 Urine Microscopic RBC 5-15 per hpf (0-3) H 04/04/17 20:12 Ur Culture Indicated? YES (NO) A 04/04/17 20:12 - Clinical Findings Intake & Output: Intake & Output 04/07/17 04/08/17 04/08/17 23:59 07:59 15:59 Intake Total 427 / 427 Output Total 500 / 500 Balance 427 / 427 -500 / -500 Weight 117.48 kg Consult Discharge Plan - Plan [facility]errals: [facility]Primary Care Provider[facility] - <Donald Ugarte - Last Filed: 04/08/17 16:00> Date of Encounter: 04/08/17 All Systems: A 10-system review of systems was performed and is negative for pertinent findings except as documented above in the HPI. Physical Examination Vital Signs: Vital Signs, Last 4 Hours Resp BP Pulse Ox 04/08/17 15:18 20 119/67 95 04/08/17 12:59 14 119/67 95 Ventilator Settings Ventilator Settings: Ventilator Settings, Last 8 Hours Ventilator Mode CPAP Ventilator Mode CPAP Ventilator Mode A/C Ventilator Mode A/C Ventilator Tidal Volume 600 Setting Ventilator Tidal Volume 600 Setting Ventilator Respiratory Rate 14 Setting Ventilator Respiratory Rate 14 Setting Actual Respiratory Rate 20 Actual Respiratory Rate 14 Positive End Expiratory 5 Pressure Positive End Expiratory 5 Pressure Positive End Expiratory 5 Pressure Positive End Expiratory 5 Pressure Peak Inspiratory Airway 17 Pressure Peak Inspiratory Airway 29 Pressure Results - Laboratory Findings CBC and BMP: 04/08/17 12:40 04/08/17 12:40 ABG ABG pH 7.31 pH Units (7.32-7.45) L 04/08/17 15:30 ABG pCO2 51 mmHg (35-45) H 04/08/17 15:30 ABG pO2 83 mmHg (85-104) L 04/08/17 15:30 ABG O2 Saturation 95 % (95-98) 04/08/17 15:30 PT/INR, D-dimer PT 14.0 Seconds (9.4-12.1) H 04/08/17 12:40 Abnormal lab findings: Abnormal lab results WBC 16.8 K/mcL (4.3-11.1) H 04/08/17 12:40 RBC 4.14 M/mcL (4.19-5.50) L 04/08/17 12:40 Hgb 12.7 g/dL (12.9-16.9) L D 04/08/17 12:40 Plt Count 103 K/mcL (140-400) L D 04/08/17 12:40 Neutrophils # 12.9 K/mcL (1.6-8.9) H 04/08/17 12:40 PT 14.0 Seconds (9.4-12.1) H 04/08/17 12:40 Heparin Anti-Xa, Unfract 0.90 IU/mL (0.30-0.70) H 04/04/17 14:57 ABG pH 7.31 pH Units (7.32-7.45) L 04/08/17 15:30 ABG pCO2 51 mmHg (35-45) H 04/08/17 15:30 ABG pO2 83 mmHg (85-104) L 04/08/17 15:30 ABG Total CO2 27.3 mEq/L (20-26) H 04/08/17 15:30 ABG Hematocrit 31.0 % (35-51) L 04/08/17 10:39 VBG pH 7.27 pH Units (7.32-7.42) L 04/08/17 09:25 VBG pCO2 60 mmHg (41-51) H 04/08/17 09:25 VBG pO2 58 mmHg (25-40) H 04/08/17 09:25 VBG HCO3 27.6 mEq/L (21-27) H 04/08/17 09:25 Glucose 124 mg/dL (60-95) H 04/08/17 10:39 Ionized Calcium 1.04 mmol/L (1.15-1.35) L 04/08/17 10:39 Glucose 120 mg/dL (70-99) H 04/08/17 12:40 POC Glucose 115 (58-89) H 04/08/17 15:02 Calcium 7.4 mg/dL (8.6-10.8) L D 04/08/17 12:40 Troponin I 1.10 ng/mL (0-0.03) H* 04/04/17 13:00 Triglycerides 177 mg/dL (< 150) H 04/07/17 04:11 VLDL Cholesterol, Calc 35 mg/dL (< 31) H 04/07/17 04:11 HDL Cholesterol 25 mg/dL (40-59) L 04/07/17 04:11 Cholesterol/HDL Ratio 5.8 (0-4.9) H 04/07/17 04:11 Ur Specific [place] 1.028 (1.010-1.025) H 04/04/17 20:12 Ur Leukocyte Esterase Small (Negative) H 04/04/17 20:12 Urine Microscopic RBC 5-15 per hpf (0-3) H 04/04/17 20:12 Ur Culture Indicated? YES (NO) A 04/04/17 20:12 - Clinical Findings Intake & Output: Intake & Output 04/07/17 04/08/17 04/08/17 23:59 07:59 15:59 Intake Total 427 / 427 100 / 100 Output Total 500 / 500 Balance 427 / 427 -400 / -400 Weight 117.48 kg - Attending Attestation I examined this patient and my medical decision-making was reviewed with the Resident Physician. I agree with the documented findings, disposition and treatment plan as described except to the extent set forth below. Patient seen and examined at bedside Labs, radiology, chart personally reviewed. Neuropsych: Lethargic post anesthesia but easily arousable and able to follow commands continue narcotics as needed for pain control Pulm: Acute hypoxic respiratory failure with likely underlying COPD who presented for operation clubbing or liberation today after spontaneous breathing trial has a significant myocardial regimen pulmonary edema and we will proceed with diuresis for this. He is acceptable oxygenation on 50% FiO2 we will continue to wean to keep saturation greater than 89%. Cards: CAD status post CABG 4 he his postop day 0 from this. cardiothoracic surgery following surgical aspects including chest tube management FEN-GI: Nothing by mouth for now GI prophylaxis given Renal: No evidence of acute kidney injury acceptable urine output continue to monitor ID: No clear evidence of infection continue to monitor Heme/Onc: Mechanical DVT prophylaxis given Endo: Local with monitored Integ/MSK: Skin care per routine ICU protocol Lines: All lines examined without evidence of infection including: Right pulmonary artery catheter and urinary Finnegan catheter CODE: Full
[2017-04-08] MEDS: Pantoprazole 40 MG VIAL IVP SCH (14:07)
--- NOTE | 2017-04-08 14:34 | Electrocardiograph Report ---
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
[2017-04-08] MEDS ORDERED: 0.9 % Sodium Chloride 500 ML ONE (15:05)
[2017-04-08] MEDS ORDERED: Furosemide 20 MG/2 ML VIAL IVP ONE ×2 (15:19→21:00)
[2017-04-08 15:41] LABS: ABG Base Excess 0.7 mEq/L (-2.0 to 3.0); ABG HCO3 25.4 mEQ/L (21-27); ABG Oxygen Saturation 97 % (95-98); ABG PCO2 40 mmHg (35-45); ABG PH 7.41 pH Units (7.32-7.45); ABG PO2 91 mmHg (85-104); ABG TCO2 26.6 mEq/L (20-26)
[2017-04-08 15:42] LABS: ABG Glucose 100 mg/dL (60-95); ABG Ionized Calcium 1.16 mmol/L (1.15-1.35)
[2017-04-08 15:44] LABS: VBG HCO3 27.6 mEq/L (21-27); VBG Ionized Calcium 1.24 mmol/L (1.15-1.35); VBG PH 7.27 pH Units (7.32-7.42)
[2017-04-08 15:45] LABS: ABG Base Excess -1.3 mEq/L (-2.0 to 3.0); ABG HCO3 25.7 mEQ/L (21-27); ABG Oxygen Saturation 95 % (95-98); ABG PCO2 51 mmHg (35-45); ABG PO2 83 mmHg (85-104); ABG TCO2 27.3 mEq/L (20-26)
[2017-04-08 15:46] LABS: ABG Base Excess -1.3 mEq/L (-2.0 to 3.0); ABG HCO3 24.8 mEQ/L (21-27); ABG PCO2 47 mmHg (35-45); ABG PH 7.33 pH Units (7.32-7.45); ABG PO2 373 mmHg (85-104); ABG TCO2 26.2 mEq/L (20-26)
[2017-04-08 15:47] LABS: ABG PH 7.31 pH Units (7.32-7.45)
[2017-04-08 15:47] LABS: ABG Glucose 137 mg/dL (60-95); ABG Ionized Calcium 1.08 mmol/L (1.15-1.35); ABG Oxygen Saturation 100 % (95-98)
[2017-04-08 15:48] LABS: Blood Gas FiO2 50 %
[2017-04-08 15:49] LABS: ABG HCO3 24.8 mEQ/L (21-27); ABG PCO2 40 mmHg (35-45); ABG PO2 345 mmHg (85-104)
[2017-04-08 15:50] LABS: ABG Glucose 170 mg/dL (60-95); ABG Ionized Calcium 1.03 mmol/L (1.15-1.35); ABG Oxygen Saturation 100 % (95-98)
[2017-04-08] MEDS: ceFAZolin 2,000 MG in D5% in Water 100 ML IVPB SCH ×2 (15:50→23:12)
[2017-04-08 15:52] LABS: ABG Base Excess 0.3 mEq/L (-2.0 to 3.0); ABG Glucose 155 mg/dL (60-95); ABG HCO3 25.4 mEQ/L (21-27); ABG Ionized Calcium 1.02 mmol/L (1.15-1.35); ABG Oxygen Saturation 100 % (95-98); ABG PCO2 42 mmHg (35-45); ABG PH 7.39 pH Units (7.32-7.45); ABG PO2 311 mmHg (85-104); ABG TCO2 26.7 mEq/L (20-26)
[2017-04-08 15:54] LABS: ABG Base Excess 0.5 mEq/L (-2.0 to 3.0); ABG HCO3 25.4 mEQ/L (21-27); ABG Oxygen Saturation 100 % (95-98); ABG PCO2 41 mmHg (35-45); ABG PO2 303 mmHg (85-104); ABG TCO2 26.7 mEq/L (20-26)
[2017-04-08 15:55] LABS: ABG Glucose 124 mg/dL (60-95); ABG Ionized Calcium 1.04 mmol/L (1.15-1.35)
[2017-04-08] MEDS: *HR* OxyCODONE/APAP 5/325 TABLET PO PRN (15:56)
[2017-04-08 15:57] LABS: ABG PCO2 45 mmHg (35-45); ABG PH 7.38 pH Units (7.32-7.45)
[2017-04-08 15:59] LABS: ABG Base Excess 1.2 mEq/L (-2.0 to 3.0); ABG HCO3 26.6 mEQ/L (21-27); ABG Oxygen Saturation 76 % (95-98); ABG PO2 42 mmHg (85-104)
[2017-04-08 16:00] LABS: ABG Glucose 118 mg/dL (60-95); ABG Ionized Calcium 1.06 mmol/L (1.15-1.35)
[2017-04-08 16:02] LABS: ABG Base Excess 0.5 mEq/L (-2.0 to 3.0); ABG HCO3 25.4 mEQ/L (21-27); ABG Oxygen Saturation 100 % (95-98); ABG PCO2 41 mmHg (35-45); ABG PO2 468 mmHg (85-104); ABG TCO2 26.7 mEq/L (20-26)
[2017-04-08 16:03] LABS: ABG Glucose 131 mg/dL (60-95); ABG Ionized Calcium 0.97 mmol/L (1.15-1.35)
[2017-04-08 16:05] LABS: ABG Base Excess 0.5 mEq/L (-2.0 to 3.0); ABG Glucose 110 mg/dL (60-95); ABG Ionized Calcium 1.06 mmol/L (1.15-1.35); ABG Oxygen Saturation 89 % (95-98); ABG PCO2 45 mmHg (35-45); ABG PH 7.37 pH Units (7.32-7.45); ABG PO2 58 mmHg (85-104); ABG TCO2 27.4 mEq/L (20-26)
[2017-04-08] MEDS: Nicotine 21 MG PATCH.TD24 TD SCH (16:05)
[2017-04-08 16:07] LABS: ABG Base Excess -0.4 mEq/L (-2.0 to 3.0); ABG HCO3 24.9 mEQ/L (21-27); ABG Oxygen Saturation 98 % (95-98); ABG PCO2 43 mmHg (35-45); ABG PH 7.37 pH Units (7.32-7.45); ABG PO2 116 mmHg (85-104); ABG TCO2 26.2 mEq/L (20-26)
[2017-04-08 16:08] LABS: ABG Glucose 97 mg/dL (60-95); ABG Ionized Calcium 1.04 mmol/L (1.15-1.35)
[2017-04-08] MEDS: Insulin Human Regular 100 UNIT in 0.9 % Sodium Chloride 100 ML IVC SCH (17:02)
[2017-04-08] MEDS: Ketorolac 15 MG/ML VIAL IVP SCH ×2 (17:50→23:12)
[2017-04-08] MEDS: Metoclopramide 10 MG/2 ML VIAL IVP SCH ×2 (17:51→23:12)
--- NOTE | 2017-04-08 21:07 | Anesthesia Evaluation Post Op ---
Date of Encounter: 04/08/17 Time of Encounter: 21:00 - Lungs Lungs: Clear Ascult./Percussion - Airway Airway: Non-obstructed - Cardiovascular Regular Rate - Mental Status Mental Status: Alert & Oriented, Answers Appropriately - Nausea Vomiting Nausea Vomiting: Not Present - Hydration Hydration: Finnegan catheter Anes Supervising Prov Stmt: no anesthesia related problems
[2017-04-09] MEDS: *HR* Morphine 2 MG/ML SYRINGE IVP PRN ×5 (02:53→16:30)
[2017-04-09 03:08] LABS: Basophils # 0.1 K/mcL (0.0-0.2); Basophils % 0.3 %; Eosinophils # 0.1 K/mcL (0.0-0.6); Eosinophils % 0.2 %; Immature Granulocytes % 0.5 % (0-4); Lymphocytes # 2.7 K/mcL (0.6-4.6); Lymphocytes % 12.1 %; Mean Corpuscular HGB Conc 33.3 g/dL (31.6-35.5); Mean Corpuscular Volume 93.3 fL (83.0-100.0); Mean Platelet Volume 10.4 fL (9.4-12.4); Monocytes # 2.8 K/mcL (0.0-1.3); Monocytes % 12.3 %; Neutrophils # 16.6 K/mcL (1.6-8.9); Platelet Count 171 K/mcL (140-400); Red Blood Count 4.61 M/mcL (4.19-5.50); Segmented Neutrophils % 74.6 %
[2017-04-09 03:10] LABS: Hemoglobin 14.3 g/dL (12.9-16.9)
[2017-04-09 03:21] LABS: INR 1.3; Prothrombin Time 14.5 Seconds (9.4-12.1)
[2017-04-09 03:23] LABS: BUN/Creatinine Ratio 13 (6-26); Blood Urea Nitrogen 16 mg/dL (8-26); Calcium 8.5 mg/dL (8.6-10.8); Carbon Dioxide 24 mEq/L (19-29); Chloride 104 mEq/L (98-109); Glucose 118 mg/dL (70-99); Osmolality,Calculated 282 (280-300); Potassium 4.4 mEq/L (3.5-4.5); Sodium 135 mEq/L (136-145); eGFR For African Americans > 60 (> 60); eGFR For Non-African Americans > 60 (> 60)
[2017-04-09] MEDS: Ketorolac 15 MG/ML VIAL IVP SCH ×4 (05:00→23:08)
[2017-04-09] MEDS: *HR* OxyCODONE/APAP 5/325 TABLET PO PRN ×5 (05:00→20:36)
[2017-04-09] MEDS: Metoclopramide 10 MG/2 ML VIAL IVP SCH ×4 (05:00→23:08)
[2017-04-09] MEDS: Furosemide 20 MG/2 ML VIAL IVP SCH ×2 (07:32→16:37)
[2017-04-09] MEDS ORDERED: D5% in Water 1,000 ML IVC PRN (07:43)
[2017-04-09] MEDS ORDERED: Dextrose Gel 15 GM PO PRN ×2 (07:43)
[2017-04-09] MEDS ORDERED: *HR* Dextrose 50 % in Water (Syg) 50 ML SYRINGE IVP PRN (07:43)
--- NOTE | 2017-04-09 07:43 | Cardiothoracic Progress Note ---
Date of Encounter: 04/09/17 Time of Encounter: 07:40 - Assessment and plan (1) NSTEMI (non-ST elevated myocardial infarction) Current Visit: Yes Status: Acute The patient is recovering well from his CABG4. He remained hemodynamically stable overnight. Currently he is extubated and breathing comfortably. His arterial line, Finnegan catheter, and [place] catheter will be removed. He will remain in the ICU today to closely monitor his respiratory status. The assessment and plan as outlined above was discussed with the patient and/or family members who expressed understanding and agreement. All questions were answered. - Subjective Procedure(s) Performed: POD#1 S/P CABG4 Interval history: The patient remained hemodynamically stable overnight. He is currently extubated and breathing comfortably. He has no complaints. Vital Signs, Last 4 Hours Temp Pulse Resp BP Pulse Ox 04/09/17 07:30 99.2 F 04/09/17 06:58 99.5 F 102 16 107/58 92 04/09/17 06:00 99.5 F 98 16 105/58 90 04/09/17 05:00 100.0 F H 98 16 103/61 89 04/09/17 04:00 100.0 F H 99 18 117/65 90 [place] Flow Rate Oxygen Flow Rate (LPM) 4 Clinical Data, last 8 Hours Output, Chest Tube Drainage 0 Amount [Mediastinal #2] Output, Chest Tube Drainage 0 Amount [Mediastinal #2] Output, Chest Tube Drainage 0 Amount [Mediastinal #2] Output, Chest Tube Drainage 0 Amount [Mediastinal #2] Output, Chest Tube Drainage 0 Amount [Mediastinal #2] Output, Chest Tube Drainage 0 Amount [Mediastinal #2] Output, Chest Tube Drainage 20 Amount [Mediastinal #2] Output, Chest Tube Drainage 20 Amount [Mediastinal #2] Output, Chest Tube Drainage 0 Amount [Mediastinal #1] Output, Chest Tube Drainage 20 Amount [Mediastinal #1] Output, Chest Tube Drainage 20 Amount [Mediastinal #1] Output, Chest Tube Drainage 20 Amount [Mediastinal #1] Output, Chest Tube Drainage 10 Amount [Mediastinal #1] Output, Chest Tube Drainage 10 Amount [Mediastinal #1] Output, Chest Tube Drainage 20 Amount [Mediastinal #1] Output, Chest Tube Drainage 20 Amount [Mediastinal #1] Weight 04/07/17 04/08/17 04/09/17 23:59 23:59 23:59 Weight 117.027 kg 117.48 kg - Physical Examination General: Conversant, No Apparent Distress Neck: No JVD, Normal carotid pulses Cardiac: Reg Rate and Rhythm, Normal S1 and S2, No Murmur Incision: No signs of infection, Dry/intact dressing Sternum: Stable Chest tubes: Minimal drainage, Other (No air leak.) Pacing Wires: In place Lungs: Normal Breath Sounds, No Wheeze, Rales, Rhonchi Neuro: Alert and responsive, No focal deficits noted Vascular: Normal capillary refill Extremities: No Clubbing, No Cyanosis, No Edema - Labs 04/09/17 03:00 04/09/17 03:00 Lab Results, Last 24 hours 04/08/17 04/08/17 04/08/17 12:40 12:40 12:40 WBC 16.8 H Hgb 12.7 L D Hct 38.8 Plt Count 103 L D INR 1.3 APTT 27.7 Sodium 138 Potassium 4.0 Chloride 108 Carbon Dioxide 27 BUN 11 Creatinine 0.87 Glucose 120 H Calcium 7.4 L D Magnesium 2.3 04/09/17 04/09/17 04/09/17 03:00 03:00 03:00 WBC 22.3 H Hgb 14.3 D Hct 43.0 Plt Count 171 D INR 1.3 APTT 29.0 Sodium 135 L Potassium 4.4 Chloride 104 Carbon Dioxide 24 BUN 16 Creatinine 1.21 Glucose 118 H Calcium 8.5 L Magnesium 2.0 - Imaging Chest Xray: image reviewed (No pneumothorax. Minimal basilar atelectasis.) - VTE Documentation of Mechanical Device: Graduated compression elastic hosiery Consult Discharge Plan - Plan [facility]errals: [facility] [Primary Care Provider] -
[2017-04-09 07:44] LABS: ABG Base Excess -0.8 mEq/L (-2.0 to 3.0); ABG HCO3 24.9 mEQ/L (21-27); ABG Oxygen Saturation 89 % (95-98); ABG PCO2 44 mmHg (35-45); ABG PH 7.36 pH Units (7.32-7.45); ABG PO2 58 mmHg (85-104); ABG TCO2 26.3 mEq/L (20-26)
[2017-04-09] MEDS: Pantoprazole 40 MG VIAL IVP SCH (08:53)
--- NOTE | 2017-04-09 08:54 | Pulmonology Progress Note ---
<Brent Lopes - Last Filed: 04/09/17 10:10> Date of Encounter: 04/09/17 Time of Encounter: 08:53 Assessment and Plan (1) Acute respiratory failure with hypoxia Current Visit: Yes Status: Acute Pulmonology was originally consult to for ventilator management. Patient has been extubated. . Patient was on nasal cannula while laying in bed.Currently on BiPAP while sitting in a chair next to the bed. We will continue to try and wean the patient from BiPAP to nasal cannula as tolerated. (2) Tobacco abuse Current Visit: Yes Status: Chronic The patient is a 22-kphk-domj smoking history. We will provide NicoDerm when necessary for the patient while in the hospital. We will encourage the patient to stop smoking and stress the importance of smoking cessation for his heart. (3) S/P CABG x 4 Current Visit: Yes Status: Acute (4) NSTEMI (non-ST elevated myocardial infarction) Current Visit: Yes Status: Acute (5) CAD (coronary artery disease) Current Visit: Yes Status: Acute Qualifiers: Coronary Disease-Associated Artery/Lesion type: bypass graft, autologous vein Associated angina: angina presence unspecified Qualified Code(s): I25.810 - Atherosclerosis of coronary artery bypass graft(s) without angina pectoris (6) Essential hypertension Current Visit: Yes Status: Chronic (7) DVT prophylaxis Current Visit: Yes Status: Acute Patient is currently on subcutaneous heparin Subjective Principal diagnosis: NSTEMI Interval history: Patient states that he is doing well this morning and is having minimal side discomfort the chest tubes are. Otherwise he states that he is not having any pain and is doing well. Patient was able to sit up this morning in the chair next to the bed on his BiPAP. Objective PUL Vital signs: Last Vital Signs Temp 99.2 F 04/09/17 08:00 Pulse 98 04/09/17 08:00 Resp 16 04/09/17 08:00 BP 100/58 04/09/17 08:00 Pulse Ox 91 04/09/17 08:00 General appearance: no acute distress Eyes: nonicteric ENT: oropharynx moist Neck: supple, no JVD Effort: normal Auscultation: bilateral: rales (Mild) Cardiovascular: regular rate and rhythm Gastrointestinal: normoactive bowel sounds Integumentary: normal Extremities: no cyanosis, no edema Musculoskeletal: no deformities normal mental status, non-focal exam mood appropriate, affect normal Results - Laboratory Findings CBC and BMP: 04/09/17 03:00 04/09/17 03:00 ABG ABG pH 7.36 pH Units (7.32-7.45) 04/09/17 07:30 ABG pCO2 44 mmHg (35-45) 04/09/17 07:30 ABG pO2 58 mmHg (85-104) L 04/09/17 07:30 ABG O2 Saturation 89 % (95-98) L 04/09/17 07:30 PT/INR, D-dimer PT 14.5 Seconds (9.4-12.1) H 04/09/17 03:00 Abnormal lab findings: Abnormal lab results WBC 22.3 K/mcL (4.3-11.1) H 04/09/17 03:00 Neutrophils # 16.6 K/mcL (1.6-8.9) H 04/09/17 03:00 Monocytes # 2.8 K/mcL (0.0-1.3) H 04/09/17 03:00 PT 14.5 Seconds (9.4-12.1) H 04/09/17 03:00 Heparin Anti-Xa, Unfract 0.90 IU/mL (0.30-0.70) H 04/04/17 14:57 ABG pO2 58 mmHg (85-104) L 04/09/17 07:30 ABG Total CO2 26.3 mEq/L (20-26) H 04/09/17 07:30 ABG O2 Saturation 89 % (95-98) L 04/09/17 07:30 ABG Hematocrit 27.0 % (35-51) L 04/08/17 11:13 VBG pH 7.27 pH Units (7.32-7.42) L 04/08/17 09:25 VBG pCO2 60 mmHg (41-51) H 04/08/17 09:25 VBG pO2 58 mmHg (25-40) H 04/08/17 09:25 VBG HCO3 27.6 mEq/L (21-27) H 04/08/17 09:25 Glucose 97 mg/dL (60-95) H 04/08/17 11:13 Ionized Calcium 1.04 mmol/L (1.15-1.35) L 04/08/17 11:13 Sodium 135 mEq/L (136-145) L 04/09/17 03:00 Glucose 118 mg/dL (70-99) H 04/09/17 03:00 POC Glucose 117 (58-89) H 04/09/17 07:28 Calcium 8.5 mg/dL (8.6-10.8) L 04/09/17 03:00 Troponin I 1.10 ng/mL (0-0.03) H* 04/04/17 13:00 Triglycerides 177 mg/dL (< 150) H 04/07/17 04:11 VLDL Cholesterol, Calc 35 mg/dL (< 31) H 04/07/17 04:11 HDL Cholesterol 25 mg/dL (40-59) L 04/07/17 04:11 Cholesterol/HDL Ratio 5.8 (0-4.9) H 04/07/17 04:11 Ur Specific [place] 1.028 (1.010-1.025) H 04/04/17 20:12 Ur Leukocyte Esterase Small (Negative) H 04/04/17 20:12 Urine Microscopic RBC 5-15 per hpf (0-3) H 04/04/17 20:12 Ur Culture Indicated? YES (NO) A 04/04/17 20:12 - Clinical Findings Intake & Output: Intake & Output 04/08/17 04/09/17 04/09/17 23:59 07:59 15:59 Intake Total 1325 / 1325 600 / 600 450 / 450 Output Total 1840 / 1840 405 / 405 10 / 10 Balance -515 / -515 195 / 195 440 / 440 - VTE Documentation of Mechanical Device: Graduated compression elastic hosiery Consult Discharge Plan - Plan [facility]errals: [facility] [Primary Care Provider] - <Donald Ugarte - Last Filed: 04/09/17 11:35> Date of Encounter: 04/09/17 Objective PUL Vital signs: Last Vital Signs Temp 99.2 F 04/09/17 08:00 Pulse 90 04/09/17 11:00 Resp 23 04/09/17 11:00 BP 115/71 04/09/17 11:00 Pulse Ox 92 04/09/17 11:00 Results - Laboratory Findings CBC and BMP: 04/09/17 03:00 04/09/17 03:00 ABG ABG pH 7.36 pH Units (7.32-7.45) 04/09/17 07:30 ABG pCO2 44 mmHg (35-45) 04/09/17 07:30 ABG pO2 58 mmHg (85-104) L 04/09/17 07:30 ABG O2 Saturation 89 % (95-98) L 04/09/17 07:30 PT/INR, D-dimer PT 14.5 Seconds (9.4-12.1) H 04/09/17 03:00 Abnormal lab findings: Abnormal lab results WBC 22.3 K/mcL (4.3-11.1) H 04/09/17 03:00 Neutrophils # 16.6 K/mcL (1.6-8.9) H 04/09/17 03:00 Monocytes # 2.8 K/mcL (0.0-1.3) H 04/09/17 03:00 PT 14.5 Seconds (9.4-12.1) H 04/09/17 03:00 Heparin Anti-Xa, Unfract 0.90 IU/mL (0.30-0.70) H 04/04/17 14:57 ABG pO2 58 mmHg (85-104) L 04/09/17 07:30 ABG Total CO2 26.3 mEq/L (20-26) H 04/09/17 07:30 ABG O2 Saturation 89 % (95-98) L 04/09/17 07:30 ABG Hematocrit 27.0 % (35-51) L 04/08/17 11:13 VBG pH 7.27 pH Units (7.32-7.42) L 04/08/17 09:25 VBG pCO2 60 mmHg (41-51) H 04/08/17 09:25 VBG pO2 58 mmHg (25-40) H 04/08/17 09:25 VBG HCO3 27.6 mEq/L (21-27) H 04/08/17 09:25 Glucose 97 mg/dL (60-95) H 04/08/17 11:13 Ionized Calcium 1.04 mmol/L (1.15-1.35) L 04/08/17 11:13 Sodium 135 mEq/L (136-145) L 04/09/17 03:00 Glucose 118 mg/dL (70-99) H 04/09/17 03:00 POC Glucose 115 (58-89) H 04/09/17 11:10 Calcium 8.5 mg/dL (8.6-10.8) L 04/09/17 03:00 Troponin I 1.10 ng/mL (0-0.03) H* 04/04/17 13:00 Triglycerides 177 mg/dL (< 150) H 04/07/17 04:11 VLDL Cholesterol, Calc 35 mg/dL (< 31) H 04/07/17 04:11 HDL Cholesterol 25 mg/dL (40-59) L 04/07/17 04:11 Cholesterol/HDL Ratio 5.8 (0-4.9) H 04/07/17 04:11 Ur Specific [place] 1.028 (1.010-1.025) H 04/04/17 20:12 Ur Leukocyte Esterase Small (Negative) H 04/04/17 20:12 Urine Microscopic RBC 5-15 per hpf (0-3) H 04/04/17 20:12 Ur Culture Indicated? YES (NO) A 04/04/17 20:12 - Clinical Findings Intake & Output: Intake & Output 04/08/17 04/09/17 04/09/17 23:59 07:59 15:59 Intake Total 1325 / 1325 600 / 600 450 / 450 Output Total 1840 / 1840 405 / 405 10 / 10 Balance -515 / -515 195 / 195 440 / 440 - Attending Attestation I examined this patient and my medical decision-making was reviewed with the Resident Physician. I agree with the documented findings, disposition and treatment plan as described except to the extent set forth below. Patient seen and examined at bedside Labs, radiology, chart personally reviewed. Neuropsych: Awake and alert and follows command continue pain control with narcotic as needed Pulm: Acute hypoxic respiratory failure with likely underlying COPD complicated by acute region pulmonary edema has been successfully liberated overnight to nasal cannula with intermittent use of positive airway pressure as needed. Continue diuresis continue bronchodilators he is having some purulent sputum production which was sent for culture and likely add antibiotic if this continues Cards: CAD status post CABG 4 he his postop day 0 from this. cardiothoracic surgery following surgical aspects including chest tube management FEN-GI: Advance diet Renal: No evidence of acute kidney injury acceptable urine output continue to monitor ID: Leukocytosis today which in large part is likely postoperative we are monitoring his respiratory status may add on antimicrobial for purulent sputum production (pneumonia) Heme/Onc: Mechanical DVT prophylaxis given Endo: Glucose monitored Integ/MSK: Skin care per routine ICU protocol Lines: All lines examined without evidence of infection including: Right pulmonary artery catheter and urinary Finnegan catheter CODE: Full
[2017-04-09] MEDS: Aspirin 81 MG TAB.CHEW PO SCH (08:56)
[2017-04-09] MEDS ORDERED: Aspirin Enteric Coated 81 MG Tablet PO SCH (09:00)
[2017-04-09] MEDS: Nicotine 21 MG PATCH.TD24 TD SCH (09:07)
[2017-04-09 16:34] LABS: BUN/Creatinine Ratio 16 (6-26); Blood Urea Nitrogen 21 mg/dL (8-26); Calcium 8.4 mg/dL (8.6-10.8); Carbon Dioxide 24 mEq/L (19-29); Chloride 103 mEq/L (98-109); Glucose 94 mg/dL (70-99); Magnesium 1.8 mg/dL (1.6-2.6); Osmolality,Calculated 281 (280-300); Potassium 4.5 mEq/L (3.5-4.5); Sodium 134 mEq/L (136-145); eGFR For African Americans > 60 (> 60); eGFR For Non-African Americans 59 (> 60)
[2017-04-09] MEDS: Insulin LISPRO 300 UNITS/3 ML VIAL SQ SCH ×2 (16:38→20:15)
[2017-04-09] MEDS: *HR* Heparin 5,000 UNIT/ML VIAL SQ SCH (17:47)
[2017-04-09] MEDS: niCARdipine 40 MG/200 ML MLS IVC SCH ×2 (20:13→20:14)
[2017-04-09] MEDS: Norepinephrine 4 MG in D5% in Water 250 ML IVC SCH ×2 (20:13→20:14)
[2017-04-09] MEDS: Nitroglycerin 25 MG/250 ML INFUS..BTL IVC SCH ×3 (20:14→23:09)
[2017-04-09] MEDS: Insulin Human Regular 100 UNIT in 0.9 % Sodium Chloride 100 ML IVC SCH (20:15)
[2017-04-10] MEDS: *HR* OxyCODONE/APAP 5/325 TABLET PO PRN ×4 (01:14→19:58)
[2017-04-10] MEDS: *HR* Morphine 2 MG/ML SYRINGE IVP PRN ×6 (01:14→17:17)
[2017-04-10] MEDS: niCARdipine 40 MG/200 ML MLS IVC SCH ×3 (03:03→20:06)
[2017-04-10 03:55] LABS: Basophils # 0.1 K/mcL (0.0-0.2); Basophils % 0.3 %; Eosinophils # 0.1 K/mcL (0.0-0.6); Eosinophils % 0.8 %; Hematocrit 37.8 % (37.5-50.1); Hemoglobin 12.6 g/dL (12.9-16.9); Immature Granulocytes % 0.5 % (0-4); Immature Platelets 5.3 % (1.1-6.1); Lymphocytes # 2.5 K/mcL (0.6-4.6); Lymphocytes % 13.3 %; Mean Corpuscular HGB Conc 33.3 g/dL (31.6-35.5); Mean Corpuscular Hemoglobin 31.3 pg (28.0-33.3); Mean Platelet Volume 10.4 fL (9.4-12.4); Monocytes # 2.1 K/mcL (0.0-1.3); Neutrophils # 13.8 K/mcL (1.6-8.9); Platelet Count 152 K/mcL (140-400); Red Blood Count 4.02 M/mcL (4.19-5.50); Red Cell Distribution Width 12.7 % (11.5-14.5); Segmented Neutrophils % 74.1 %
[2017-04-10 04:06] LABS: BUN/Creatinine Ratio 21 (6-26); Blood Urea Nitrogen 24 mg/dL (8-26); Calcium 8.8 mg/dL (8.6-10.8); Carbon Dioxide 28 mEq/L (19-29); Chloride 100 mEq/L (98-109); Glucose 100 mg/dL (70-99); Osmolality,Calculated 280 (280-300); Potassium 3.9 mEq/L (3.5-4.5); Sodium 133 mEq/L (136-145); eGFR For African Americans > 60 (> 60); eGFR For Non-African Americans > 60 (> 60)
[2017-04-10] MEDS: Metoclopramide 10 MG/2 ML VIAL IVP SCH ×4 (05:04→23:40)
[2017-04-10] MEDS: *HR* Heparin 5,000 UNIT/ML VIAL SQ SCH ×2 (05:04→17:18)
[2017-04-10] MEDS: Ketorolac 15 MG/ML VIAL IVP SCH ×4 (05:04→23:40)
[2017-04-10] MEDS: Nitroglycerin 25 MG/250 ML INFUS..BTL IVC SCH ×3 (06:03→20:19)
--- NOTE | 2017-04-10 06:45 | Cardiothoracic Progress Note ---
Date of Encounter: 04/10/17 Time of Encounter: 06:43 - Assessment and plan (1) NSTEMI (non-ST elevated myocardial infarction) Current Visit: Yes Status: Acute The patient is recovering well from his CABG4. He remained hemodynamically stable overnight. Currently he is breathing comfortably. The chest tubes were removed. He will remain in the ICU today to closely monitor his respiratory status. The assessment and plan as outlined above was discussed with the patient and/or family members who expressed understanding and agreement. All questions were answered. - Subjective Procedure(s) Performed: POD#2 S/P CABG4 Interval history: The patient remained hemodynamically stable overnight. He is chair and breathing comfortably. He has no complaints. Vital Signs, Last 4 Hours Temp Pulse Resp BP Pulse Ox 04/10/17 06:02 86 19 105/79 92 04/10/17 05:04 86 14 99/74 91 04/10/17 04:04 92 19 107/66 91 04/10/17 03:51 16 90 04/10/17 03:34 98.6 F 04/10/17 03:00 88 14 96/73 91 Oxgyen Flow Rate Oxygen Flow Rate (LPM) 11 Clinical Data, last 8 Hours Output, Chest Tube Drainage 0 Amount [Mediastinal #2] Output, Chest Tube Drainage 14 Amount [Mediastinal #2] Output, Chest Tube Drainage 0 Amount [Mediastinal #1] Output, Chest Tube Drainage 30 Amount [Mediastinal #1] Weight 04/08/17 04/09/17 04/10/17 23:59 23:59 23:59 Weight 117.48 kg 124.2 kg - Physical Examination General: Conversant, No Apparent Distress Neck: No JVD, Normal carotid pulses Cardiac: Reg Rate and Rhythm, Normal S1 and S2, No Murmur Incision: No signs of infection, Dry/intact dressing Sternum: Stable Chest tubes: Minimal drainage, Other (No air leak.) Pacing Wires: In place Lungs: Normal Breath Sounds, No Wheeze, Rales, Rhonchi Neuro: Alert and responsive, No focal deficits noted Vascular: Normal capillary refill Extremities: No Clubbing - Labs 04/10/17 03:46 04/10/17 03:46 Lab Results, Last 24 hours 04/09/17 04/10/17 04/10/17 16:00 03:46 03:46 WBC 18.6 H Hgb 12.6 L D Hct 37.8 Plt Count 152 Sodium 134 L 133 L Potassium 4.5 3.9 Chloride 103 100 Carbon Dioxide 24 28 BUN 21 24 Creatinine 1.32 H 1.15 Glucose 94 100 H Calcium 8.4 L 8.8 Magnesium 1.8 - Imaging Chest Xray: image reviewed (No pneumothorax. Bibasilar atelectasis.) - VTE Documentation of Mechanical Device: Graduated compression elastic hosiery Consult Discharge Plan - Plan [facility]errals: [facility] [Primary Care Provider] -
--- NOTE | 2017-04-10 07:27 | Pulmonology Progress Note ---
<ShanelDonald W - Last Filed: 04/10/17 10:06> Date of Encounter: 04/10/17 Objective PUL Vital signs: Last Vital Signs Temp 98.8 F 04/10/17 08:11 Pulse 88 04/10/17 09:00 Resp 20 04/10/17 09:00 BP 98/80 04/10/17 09:00 Pulse Ox 93 04/10/17 09:00 Results - Laboratory Findings CBC and BMP: 04/10/17 03:46 04/10/17 03:46 ABG ABG pH 7.36 pH Units (7.32-7.45) 04/09/17 07:30 ABG pCO2 44 mmHg (35-45) 04/09/17 07:30 ABG pO2 58 mmHg (85-104) L 04/09/17 07:30 ABG O2 Saturation 89 % (95-98) L 04/09/17 07:30 PT/INR, D-dimer PT 14.5 Seconds (9.4-12.1) H 04/09/17 03:00 Abnormal lab findings: Abnormal lab results WBC 18.6 K/mcL (4.3-11.1) H 04/10/17 03:46 RBC 4.02 M/mcL (4.19-5.50) L 04/10/17 03:46 Hgb 12.6 g/dL (12.9-16.9) L D 04/10/17 03:46 Neutrophils # 13.8 K/mcL (1.6-8.9) H 04/10/17 03:46 Monocytes # 2.1 K/mcL (0.0-1.3) H 04/10/17 03:46 PT 14.5 Seconds (9.4-12.1) H 04/09/17 03:00 Heparin Anti-Xa, Unfract 0.90 IU/mL (0.30-0.70) H 04/04/17 14:57 ABG pO2 58 mmHg (85-104) L 04/09/17 07:30 ABG Total CO2 26.3 mEq/L (20-26) H 04/09/17 07:30 ABG O2 Saturation 89 % (95-98) L 04/09/17 07:30 ABG Hematocrit 27.0 % (35-51) L 04/08/17 11:13 VBG pH 7.27 pH Units (7.32-7.42) L 04/08/17 09:25 VBG pCO2 60 mmHg (41-51) H 04/08/17 09:25 VBG pO2 58 mmHg (25-40) H 04/08/17 09:25 VBG HCO3 27.6 mEq/L (21-27) H 04/08/17 09:25 Glucose 97 mg/dL (60-95) H 04/08/17 11:13 Ionized Calcium 1.04 mmol/L (1.15-1.35) L 04/08/17 11:13 Sodium 133 mEq/L (136-145) L 04/10/17 03:46 Glucose 100 mg/dL (70-99) H 04/10/17 03:46 POC Glucose 108 (58-89) H 04/10/17 07:51 Troponin I 1.10 ng/mL (0-0.03) H* 04/04/17 13:00 Triglycerides 177 mg/dL (< 150) H 04/07/17 04:11 VLDL Cholesterol, Calc 35 mg/dL (< 31) H 04/07/17 04:11 HDL Cholesterol 25 mg/dL (40-59) L 04/07/17 04:11 Cholesterol/HDL Ratio 5.8 (0-4.9) H 04/07/17 04:11 Ur Specific [place] 1.028 (1.010-1.025) H 04/04/17 20:12 Ur Leukocyte Esterase Small (Negative) H 04/04/17 20:12 Urine Microscopic RBC 5-15 per hpf (0-3) H 04/04/17 20:12 Ur Culture Indicated? YES (NO) A 04/04/17 20:12 - Clinical Findings Intake & Output: Intake & Output 04/09/17 04/10/17 04/10/17 23:59 07:59 15:59 Output Total 799 / 799 150 / 150 Balance -799 / -799 -150 / -150 Weight 124.2 kg Consult Discharge Plan - Plan [facility]errals: [facility] [Primary Care Provider] - - Attending Attestation I examined this patient and my medical decision-making was reviewed with the Resident Physician. I agree with the documented findings, disposition and treatment plan as described except to the extent set forth below. We independently had [id number] contact with the patient Impression: 1. Acute Hypoxic Respiratory Failure 2. CAD Post Op Day 2 s/p CABG 3. Suspected COPD 4. Tobacco Abuse 5. Suspected Sleep Disordered Breathing Recs: -Continue to wean oxygen to keep saturation greater than 88% to 92% incentive spirometry out of bed to chair and ambulation as tolerated continue pulmonary toileting -Cardiothoracic surgery managing post surgical aspects including chest tube management -We will schedule bronchodilators will also had a metered-dose inhaler be used daily -Tobacco cessation counseling given -Outpatient polysomnogram is appropriate to use positive airway pressure at night or as needed for comfort -DVT prophylaxis <Brent Lopes - Last Filed: 04/10/17 10:16> Date of Encounter: 04/10/17 Time of Encounter: 07:26 Assessment and Plan (1) Acute respiratory failure with hypoxia Current Visit: Yes Status: Acute Pulmonology was originally consult to for ventilator management. Patient has been extubated. . Patient is currently sitting in his chair next to the bed on high flow nasal cannula. His is maintaining his oxygen saturations in the low 90s. We have recommended using the incentive spirometry. We will also order scheduled Duonebs. (2) Tobacco abuse Current Visit: Yes Status: Chronic The patient is a [id number] smoking history. We will provide NicoDerm when necessary for the patient while in the hospital. We will encourage the patient to stop smoking and stress the importance of smoking cessation for his heart. (3) S/P CABG x 4 Current Visit: Yes Status: Acute (4) NSTEMI (non-ST elevated myocardial infarction) Current Visit: Yes Status: Acute (5) CAD (coronary artery disease) Current Visit: Yes Status: Acute Qualifiers: Coronary Disease-Associated Artery/Lesion type: bypass graft, autologous vein Associated angina: angina presence unspecified Qualified Code(s): I25.810 - Atherosclerosis of coronary artery bypass graft(s) without angina pectoris (6) Essential hypertension Current Visit: Yes Status: Chronic (7) DVT prophylaxis Current Visit: Yes Status: Acute Patient is currently on subcutaneous heparin Subjective Principal diagnosis: NSTEMI Interval history: Patient states that he is doing well this morning and is having minimal side discomfort from where the chest tubes were. Otherwise he states that he is not having any pain and is doing well. Patient was able to sit up this morning in the chair next to the bed and is currently on high flow nasal cannula. Patient slept in the chair all night due to his back being uncomfortable in the bed. Objective PUL Vital signs: Last Vital Signs Temp 98.6 F 04/10/17 03:34 Pulse 86 04/10/17 06:02 Resp 19 04/10/17 06:02 BP 105/79 04/10/17 06:02 Pulse Ox 92 04/10/17 06:02 General appearance: no acute distress Eyes: nonicteric ENT: oropharynx moist Neck: supple, no lymphadenopathy, no JVD Effort: normal Auscultation: bilateral: clear Cardiovascular: regular rate and rhythm Gastrointestinal: normoactive bowel sounds Integumentary: normal Extremities: no cyanosis, no edema Musculoskeletal: no deformities normal mental status, non-focal exam mood appropriate, affect normal Results - Laboratory Findings CBC and BMP: 04/10/17 03:46 04/10/17 03:46 ABG ABG pH 7.36 pH Units (7.32-7.45) 04/09/17 07:30 ABG pCO2 44 mmHg (35-45) 04/09/17 07:30 ABG pO2 58 mmHg (85-104) L 04/09/17 07:30 ABG O2 Saturation 89 % (95-98) L 04/09/17 07:30 PT/INR, D-dimer PT 14.5 Seconds (9.4-12.1) H 04/09/17 03:00 Abnormal lab findings: Abnormal lab results WBC 18.6 K/mcL (4.3-11.1) H 04/10/17 03:46 RBC 4.02 M/mcL (4.19-5.50) L 04/10/17 03:46 Hgb 12.6 g/dL (12.9-16.9) L D 04/10/17 03:46 Neutrophils # 13.8 K/mcL (1.6-8.9) H 04/10/17 03:46 Monocytes # 2.1 K/mcL (0.0-1.3) H 04/10/17 03:46 PT 14.5 Seconds (9.4-12.1) H 04/09/17 03:00 Heparin Anti-Xa, Unfract 0.90 IU/mL (0.30-0.70) H 04/04/17 14:57 ABG pO2 58 mmHg (85-104) L 04/09/17 07:30 ABG Total CO2 26.3 mEq/L (20-26) H 04/09/17 07:30 ABG O2 Saturation 89 % (95-98) L 04/09/17 07:30 ABG Hematocrit 27.0 % (35-51) L 04/08/17 11:13 VBG pH 7.27 pH Units (7.32-7.42) L 04/08/17 09:25 VBG pCO2 60 mmHg (41-51) H 04/08/17 09:25 VBG pO2 58 mmHg (25-40) H 04/08/17 09:25 VBG HCO3 27.6 mEq/L (21-27) H 04/08/17 09:25 Glucose 97 mg/dL (60-95) H 04/08/17 11:13 Ionized Calcium 1.04 mmol/L (1.15-1.35) L 04/08/17 11:13 Sodium 133 mEq/L (136-145) L 04/10/17 03:46 Glucose 100 mg/dL (70-99) H 04/10/17 03:46 POC Glucose 93 (58-89) H 04/09/17 20:11 Troponin I 1.10 ng/mL (0-0.03) H* 04/04/17 13:00 Triglycerides 177 mg/dL (< 150) H 04/07/17 04:11 VLDL Cholesterol, Calc 35 mg/dL (< 31) H 04/07/17 04:11 HDL Cholesterol 25 mg/dL (40-59) L 04/07/17 04:11 Cholesterol/HDL Ratio 5.8 (0-4.9) H 04/07/17 04:11 Ur Specific [place] 1.028 (1.010-1.025) H 04/04/17 20:12 Ur Leukocyte Esterase Small (Negative) H 04/04/17 20:12 Urine Microscopic RBC 5-15 per hpf (0-3) H 04/04/17 20:12 Ur Culture Indicated? YES (NO) A 04/04/17 20:12 - Clinical Findings Intake & Output: Intake & Output 08/12/17 08/12/17 08/13/17 15:59 23:59 07:59 Intake Total 950 / 950 Output Total 370 / 370 799 / 799 150 / 150 Balance 580 / 580 -799 / -799 -150 / -150 Weight 124.2 kg - VTE Documentation of Mechanical Device: Graduated compression elastic hosiery
[2017-04-10] MEDS: Furosemide 20 MG/2 ML VIAL IVP SCH ×2 (07:51→17:18)
[2017-04-10] MEDS: Nicotine 21 MG PATCH.TD24 TD SCH (07:52)
[2017-04-10] MEDS: Aspirin 81 MG TAB.CHEW PO SCH (07:52)
[2017-04-10] MEDS: Insulin LISPRO 300 UNITS/3 ML VIAL SQ SCH ×4 (07:52→20:04)
[2017-04-10] MEDS: Pantoprazole 40 MG VIAL IVP SCH (07:52)
[2017-04-10] MEDS: Ipratropium/Albuterol Neb 3 ML IH SCH ×4 (11:53→23:52)
[2017-04-10] MEDS: Budesonide/Formoterol 160/4.5 MDI IH SCH ×2 (11:56→19:41)
[2017-04-10] MEDS: *HR* HYDROcodone/Acet 5/325 mg TABLET PO PRN ×2 (14:49→21:34)
[2017-04-10] MEDS: Norepinephrine 4 MG in D5% in Water 250 ML IVC SCH (19:46)
[2017-04-11] MEDS: *HR* OxyCODONE/APAP 5/325 TABLET PO PRN ×2 (03:17→08:06)
[2017-04-11 03:40] LABS: INR 1.2; Prothrombin Time 13.4 Seconds (9.4-12.1)
[2017-04-11 03:42] LABS: Activated Partial Thrombo Time 27.7 Seconds (26.0-36.0)
[2017-04-11 03:46] LABS: BUN/Creatinine Ratio 27 (6-26); Blood Urea Nitrogen 28 mg/dL (8-26); Calcium 9.2 mg/dL (8.6-10.8); Carbon Dioxide 26 mEq/L (19-29); Chloride 100 mEq/L (98-109); Glucose 97 mg/dL (70-99); Osmolality,Calculated 287 (280-300); Potassium 3.9 mEq/L (3.5-4.5); Sodium 136 mEq/L (136-145); eGFR For African Americans > 60 (> 60); eGFR For Non-African Americans > 60 (> 60)
[2017-04-11] MEDS: Metoclopramide 10 MG/2 ML VIAL IVP SCH (05:15)
[2017-04-11] MEDS: Ketorolac 15 MG/ML VIAL IVP SCH ×3 (05:15→18:30)
[2017-04-11] MEDS: *HR* Heparin 5,000 UNIT/ML VIAL SQ SCH ×2 (05:15→18:30)
[2017-04-11] MEDS: Ipratropium/Albuterol Neb 3 ML IH SCH ×5 (05:32→20:22)
[2017-04-11 06:45] LABS: Basophils # 0.1 K/mcL (0.0-0.2); Basophils % 0.3 %; Eosinophils # 0.2 K/mcL (0.0-0.6); Eosinophils % 1.4 %; Hematocrit 37.2 % (37.5-50.1); Hemoglobin 12.6 g/dL (12.9-16.9); Immature Granulocytes % 0.7 % (0-4); Lymphocytes % 13.6 %; Mean Corpuscular HGB Conc 33.9 g/dL (31.6-35.5); Mean Corpuscular Hemoglobin 32.3 pg (28.0-33.3); Mean Corpuscular Volume 95.4 fL (83.0-100.0); Mean Platelet Volume 11.2 fL (9.4-12.4); Monocytes # 1.5 K/mcL (0.0-1.3); Monocytes % 10.2 %; Neutrophils # 10.9 K/mcL (1.6-8.9); Platelet Count 178 K/mcL (140-400); Red Cell Distribution Width 12.9 % (11.5-14.5); Segmented Neutrophils % 73.8 %
[2017-04-11] MEDS: Budesonide/Formoterol 160/4.5 MDI IH SCH ×3 (07:41→20:22)
[2017-04-11] MEDS: Aspirin 81 MG TAB.CHEW PO SCH (08:06)
[2017-04-11] MEDS: Furosemide 20 MG/2 ML VIAL IVP SCH (08:06)
[2017-04-11] MEDS: Pantoprazole 40 MG VIAL IVP SCH (08:06)
[2017-04-11] MEDS: Nitroglycerin 25 MG/250 ML INFUS..BTL IVC SCH (08:12)
[2017-04-11] MEDS: niCARdipine 40 MG/200 ML MLS IVC SCH (08:12)
[2017-04-11] MEDS: Insulin LISPRO 300 UNITS/3 ML VIAL SQ SCH ×3 (08:13→16:30)
[2017-04-11] MEDS: Nicotine 21 MG PATCH.TD24 TD SCH (08:13)
--- NOTE | 2017-04-11 08:40 | Pulmonology Progress Note ---
<Brent Lopes - Last Filed: 04/11/17 14:17> Date of Encounter: 04/11/17 Time of Encounter: 08:38 Assessment and Plan (1) Acute respiratory failure with hypoxia Current Visit: Yes Status: Acute Pulmonology was originally consult to for ventilator management. Patient has been extubated. . Patient is currently sitting in his chair next to the bed on nasal cannula. He is maintaining his oxygen saturations in the low 90s. We have recommended using the incentive spirometry. We will continue scheduled Duonebs and symbicort. Albuterol prn. Patient will be transferred out of the ICU today. (2) Tobacco abuse Current Visit: Yes Status: Chronic The patient is a [id number] smoking history. We will provide NicoDerm when necessary for the patient while in the hospital. We will encourage the patient to stop smoking and stress the importance of smoking cessation for his heart. (3) S/P CABG x 4 Current Visit: Yes Status: Acute (4) NSTEMI (non-ST elevated myocardial infarction) Current Visit: Yes Status: Acute (5) CAD (coronary artery disease) Current Visit: Yes Status: Acute Qualifiers: Coronary Disease-Associated Artery/Lesion type: bypass graft, autologous vein Associated angina: angina presence unspecified Qualified Code(s): I25.810 - Atherosclerosis of coronary artery bypass graft(s) without angina pectoris (6) Essential hypertension Current Visit: Yes Status: Chronic (7) DVT prophylaxis Current Visit: Yes Status: Acute Patient is currently on subcutaneous heparin Subjective Principal diagnosis: NSTEMI Interval history: Patient states that he is doing well this morning and is having minimal side discomfort from where the chest tubes were. Otherwise he states that he is not having any pain and is doing well. Patient was able to sit up this morning in the chair next to the bed and is currently on nasal cannula. Objective PUL Vital signs: Last Vital Signs Temp 98.6 F 04/11/17 07:29 Pulse 90 04/11/17 08:14 Resp 15 04/11/17 08:14 BP 105/75 04/11/17 08:14 Pulse Ox 91 04/11/17 08:14 General appearance: no acute distress Eyes: nonicteric ENT: oropharynx moist Neck: supple Effort: normal Auscultation: left: clear, right: wheezes Cardiovascular: regular rate and rhythm Gastrointestinal: normoactive bowel sounds Integumentary: normal Extremities: no cyanosis, no edema Musculoskeletal: no deformities normal mental status, non-focal exam mood appropriate, affect normal Results - Laboratory Findings CBC and BMP: 04/11/17 03:25 04/11/17 03:25 ABG ABG pH 7.36 pH Units (7.32-7.45) 04/09/17 07:30 ABG pCO2 44 mmHg (35-45) 04/09/17 07:30 ABG pO2 58 mmHg (85-104) L 04/09/17 07:30 ABG O2 Saturation 89 % (95-98) L 04/09/17 07:30 PT/INR, D-dimer PT 13.4 Seconds (9.4-12.1) H 04/11/17 03:25 Abnormal lab findings: Abnormal lab results WBC 14.8 K/mcL (4.3-11.1) H 04/11/17 03:25 RBC 3.90 M/mcL (4.19-5.50) L 04/11/17 03:25 Hgb 12.6 g/dL (12.9-16.9) L 04/11/17 03:25 Hct 37.2 % (37.5-50.1) L 04/11/17 03:25 Neutrophils # 10.9 K/mcL (1.6-8.9) H 04/11/17 03:25 Monocytes # 1.5 K/mcL (0.0-1.3) H 04/11/17 03:25 PT 13.4 Seconds (9.4-12.1) H 04/11/17 03:25 Heparin Anti-Xa, Unfract 0.90 IU/mL (0.30-0.70) H 04/04/17 14:57 ABG pO2 58 mmHg (85-104) L 04/09/17 07:30 ABG Total CO2 26.3 mEq/L (20-26) H 04/09/17 07:30 ABG O2 Saturation 89 % (95-98) L 04/09/17 07:30 ABG Hematocrit 27.0 % (35-51) L 04/08/17 11:13 VBG pH 7.27 pH Units (7.32-7.42) L 04/08/17 09:25 VBG pCO2 60 mmHg (41-51) H 04/08/17 09:25 VBG pO2 58 mmHg (25-40) H 04/08/17 09:25 VBG HCO3 27.6 mEq/L (21-27) H 04/08/17 09:25 Glucose 97 mg/dL (60-95) H 04/08/17 11:13 Ionized Calcium 1.04 mmol/L (1.15-1.35) L 04/08/17 11:13 BUN 28 mg/dL (8-26) H 04/11/17 03:25 BUN/Creatinine Ratio 27 (6-26) H 04/11/17 03:25 POC Glucose 105 (58-89) H 04/11/17 07:09 Troponin I 1.10 ng/mL (0-0.03) H* 04/04/17 13:00 Triglycerides 177 mg/dL (< 150) H 04/07/17 04:11 VLDL Cholesterol, Calc 35 mg/dL (< 31) H 04/07/17 04:11 HDL Cholesterol 25 mg/dL (40-59) L 04/07/17 04:11 Cholesterol/HDL Ratio 5.8 (0-4.9) H 04/07/17 04:11 Ur Specific [place] 1.028 (1.010-1.025) H 04/04/17 20:12 Ur Leukocyte Esterase Small (Negative) H 04/04/17 20:12 Urine Microscopic RBC 5-15 per hpf (0-3) H 04/04/17 20:12 Ur Culture Indicated? YES (NO) A 04/04/17 20:12 - Clinical Findings Intake & Output: Intake & Output 04/10/17 04/11/17 04/11/17 23:59 07:59 15:59 Intake Total 100 / 100 150 / 150 Output Total 1000 / 1000 200 / 200 Balance -900 / -900 -50 / -50 - VTE Documentation of Mechanical Device: Graduated compression elastic hosiery Consult Discharge Plan - Plan Referrals: Annette Gilbert MD [Partnered Physician] - 05/19/17 1:00 pm Sydnee Marley CNP [Partnered Physician] - 04/26/17 10:30 am [facility]Primary Care Provider[facility] - 04/22/17 9:15 am <Ladonna Juan - Last Filed: 04/11/17 17:02> Date of Encounter: 04/11/17 Objective PUL Vital signs: Last Vital Signs Temp 97.4 F L 04/11/17 16:21 Pulse 86 04/11/17 16:34 Resp 18 04/11/17 16:21 BP 120/75 04/11/17 16:21 Pulse Ox 91 04/11/17 16:21 Results - Laboratory Findings CBC and BMP: 04/11/17 03:25 04/11/17 03:25 ABG ABG pH 7.36 pH Units (7.32-7.45) 04/09/17 07:30 ABG pCO2 44 mmHg (35-45) 04/09/17 07:30 ABG pO2 58 mmHg (85-104) L 04/09/17 07:30 ABG O2 Saturation 89 % (95-98) L 04/09/17 07:30 PT/INR, D-dimer PT 13.4 Seconds (9.4-12.1) H 04/11/17 03:25 Abnormal lab findings: Abnormal lab results WBC 14.8 K/mcL (4.3-11.1) H 04/11/17 03:25 RBC 3.90 M/mcL (4.19-5.50) L 04/11/17 03:25 Hgb 12.6 g/dL (12.9-16.9) L 04/11/17 03:25 Hct 37.2 % (37.5-50.1) L 04/11/17 03:25 Neutrophils # 10.9 K/mcL (1.6-8.9) H 04/11/17 03:25 Monocytes # 1.5 K/mcL (0.0-1.3) H 04/11/17 03:25 PT 13.4 Seconds (9.4-12.1) H 04/11/17 03:25 Heparin Anti-Xa, Unfract 0.90 IU/mL (0.30-0.70) H 04/04/17 14:57 ABG pO2 58 mmHg (85-104) L 04/09/17 07:30 ABG Total CO2 26.3 mEq/L (20-26) H 04/09/17 07:30 ABG O2 Saturation 89 % (95-98) L 04/09/17 07:30 ABG Hematocrit 27.0 % (35-51) L 04/08/17 11:13 VBG pH 7.27 pH Units (7.32-7.42) L 04/08/17 09:25 VBG pCO2 60 mmHg (41-51) H 04/08/17 09:25 VBG pO2 58 mmHg (25-40) H 04/08/17 09:25 VBG HCO3 27.6 mEq/L (21-27) H 04/08/17 09:25 Glucose 97 mg/dL (60-95) H 04/08/17 11:13 Ionized Calcium 1.04 mmol/L (1.15-1.35) L 04/08/17 11:13 BUN 28 mg/dL (8-26) H 04/11/17 03:25 BUN/Creatinine Ratio 27 (6-26) H 04/11/17 03:25 POC Glucose 105 (58-89) H 04/11/17 07:09 Troponin I 1.10 ng/mL (0-0.03) H* 04/04/17 13:00 Triglycerides 177 mg/dL (< 150) H 04/07/17 04:11 VLDL Cholesterol, Calc 35 mg/dL (< 31) H 04/07/17 04:11 HDL Cholesterol 25 mg/dL (40-59) L 04/07/17 04:11 Cholesterol/HDL Ratio 5.8 (0-4.9) H 04/07/17 04:11 Ur Specific [place] 1.028 (1.010-1.025) H 04/04/17 20:12 Ur Leukocyte Esterase Small (Negative) H 04/04/17 20:12 Urine Microscopic RBC 5-15 per hpf (0-3) H 04/04/17 20:12 Ur Culture Indicated? YES (NO) A 04/04/17 20:12 - Clinical Findings Intake & Output: Intake & Output 04/11/17 04/11/17 04/11/17 07:59 15:59 23:59 Intake Total 150 / 150 Output Total 200 / 200 400 / 400 Balance -50 / -50 -400 / -400 - Attending Attestation I examined this patient and my medical decision-making was reviewed with the Resident Physician. I agree with the documented findings, disposition and treatment plan as described except to the extent set forth below. Patient seen and examined. Labs, radiology, chart personally reviewed. 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 Cardiovascular: stable GI: Nutrition per dietary and GI prophylaxis per routine Overall patient is improving and he will need outpatient follow-up.
--- NOTE | 2017-04-11 08:58 | Cardiothoracic Progress Note ---
Date of Encounter: 04/11/17 Time of Encounter: 08:56 - Assessment and plan (1) NSTEMI (non-ST elevated myocardial infarction) Current Visit: Yes Status: Acute We will transfer the patient to the floor. His respiratory status continues to improve. - Subjective Interval history: The patient has no complaints. His respiratory status is improved. Vital Signs, Last 4 Hours Temp Pulse Resp BP Pulse Ox 04/11/17 08:14 90 15 105/75 91 04/11/17 07:44 15 91 04/11/17 07:29 98.6 F 04/11/17 06:01 77 15 94/58 91 04/11/17 05:00 82 16 106/59 92 Oxgyen Flow Rate Oxygen Flow Rate (LPM) 3 Clinical Data, last 8 Hours Output, Urine Amount 200 Weight 04/09/17 04/10/17 04/11/17 23:59 23:59 23:59 Weight 124.2 kg Lungs are clear to percussion and auscultation. Heart is in a normal sinus rhythm. All incisions are healing well without signs of infection and the sternum is stable. - Labs 04/11/17 03:25 04/11/17 03:25 Lab Results, Last 24 hours 04/11/17 04/11/17 04/11/17 03:25 03:25 03:25 WBC 14.8 H Hgb 12.6 L Hct 37.2 L Plt Count 178 INR 1.2 APTT 27.7 Sodium 136 Potassium 3.9 Chloride 100 Carbon Dioxide 26 BUN 28 H Creatinine 1.05 Glucose 97 Calcium 9.2 Magnesium 04/11/17 03:25 WBC Hgb Hct Plt Count INR APTT Sodium Potassium Chloride Carbon Dioxide BUN Creatinine Glucose Calcium Magnesium 2.3 - VTE Documentation of Mechanical Device: Graduated compression elastic hosiery Consult Discharge Plan - Plan Referrals: [facility] [Primary Care Provider] -
[2017-04-11] MEDS ORDERED: *HR* Morphine 2 MG/ML SYRINGE IVP PRN ×2 (09:13)
[2017-04-11] MEDS ORDERED: Nitroglycerin 0.4 MG TAB.SUBL SL PRN (09:13)
[2017-04-11] MEDS ORDERED: Naloxone 0.4 MG/ML INJ IVP PRN (09:13)
[2017-04-11] MEDS ORDERED: D5% in Water 1,000 ML IVC PRN (09:13)
[2017-04-11] MEDS ORDERED: Insulin Regular, Human 100 UNIT/ML IV PRN (09:13)
[2017-04-11] MEDS ORDERED: Acetaminophen 325 MG TABLET PO PRN (09:13)
[2017-04-11] MEDS ORDERED: Dextrose Gel 15 GM PO PRN ×2 (09:13)
[2017-04-11] MEDS ORDERED: Ondansetron 4 MG/2 ML VIAL IVP PRN (09:13)
[2017-04-11] MEDS ORDERED: *HR* Dextrose 50 % in Water (Syg) 50 ML SYRINGE IVP PRN (09:13)
[2017-04-11] MEDS: *HR* HYDROcodone/Acet 5/325 mg TABLET PO PRN ×3 (11:06→22:19)
[2017-04-11] MEDS ORDERED: Tranexamic Acid 1,000 MG/10 ML VIAL IV ONE (14:12)
[2017-04-11] MEDS ORDERED: Albumin Human 25% 25 GM/100 ML IV.SOLN IV ONE (14:12)
[2017-04-11] MEDS ORDERED: Mannitol 25% vial 12.5 GM/50 ML VIAL IVP ONE (14:12)
[2017-04-11] MEDS ORDERED: Lidocaine 2% Syringe 100 MG/5 ML IV ONE (14:12)
[2017-04-11] MEDS ORDERED: *HR* Phenylephrine 10 MG/ML VIAL IVC ONE (14:12)
[2017-04-11] MEDS ORDERED: *HR* Heparin 10,000 UNIT/10 ML VIAL IV ONE (14:12)
[2017-04-11] MEDS ORDERED: *HR* Magnesium Sulfate 2 GM/50 ML PIGGYBACK IVPB ONE (14:12)
[2017-04-11] MEDS ORDERED: Furosemide 20 MG/2 ML VIAL IVP SCH (17:00)
[2017-04-11] MEDS ORDERED: Insulin LISPRO 300 UNITS/3 ML VIAL SQ SCH (21:00)
[2017-04-12] MEDS: Ketorolac 15 MG/ML VIAL IVP SCH ×4 (00:53→17:29)
[2017-04-12 02:26] LABS: Basophils # 0.1 K/mcL (0.0-0.2); Basophils % 0.4 %; Eosinophils # 0.3 K/mcL (0.0-0.6); Hematocrit 34.4 % (37.5-50.1); Hemoglobin 11.7 g/dL (12.9-16.9); Immature Granulocytes % 0.6 % (0-4); Lymphocytes # 2.4 K/mcL (0.6-4.6); Lymphocytes % 18.8 %; Mean Corpuscular Hemoglobin 31.7 pg (28.0-33.3); Mean Corpuscular Volume 93.2 fL (83.0-100.0); Mean Platelet Volume 10.4 fL (9.4-12.4); Monocytes # 1.1 K/mcL (0.0-1.3); Neutrophils # 8.8 K/mcL (1.6-8.9); Platelet Count 235 K/mcL (140-400); Red Blood Count 3.69 M/mcL (4.19-5.50); Red Cell Distribution Width 12.9 % (11.5-14.5); Segmented Neutrophils % 69.2 %
[2017-04-12 02:39] LABS: BUN/Creatinine Ratio 28 (6-26); Blood Urea Nitrogen 31 mg/dL (8-26); Carbon Dioxide 26 mEq/L (19-29); Chloride 99 mEq/L (98-109); Glucose 95 mg/dL (70-99); Osmolality,Calculated 288 (280-300); Potassium 3.6 mEq/L (3.5-4.5); Sodium 136 mEq/L (136-145); eGFR For African Americans > 60 (> 60); eGFR For Non-African Americans > 60 (> 60)
[2017-04-12] MEDS: Ipratropium/Albuterol Neb 3 ML IH SCH ×7 (04:16→23:38)
[2017-04-12] MEDS: *HR* Heparin 5,000 UNIT/ML VIAL SQ SCH ×2 (05:46→17:30)
[2017-04-12] MEDS: Insulin LISPRO 300 UNITS/3 ML VIAL SQ SCH (07:22)
[2017-04-12] MEDS: Aspirin 81 MG TAB.CHEW PO SCH (07:22)
[2017-04-12] MEDS: *HR* OxyCODONE/APAP 5/325 TABLET PO PRN (07:22)
[2017-04-12] MEDS: Budesonide/Formoterol 160/4.5 MDI IH SCH ×2 (07:33→19:51)
[2017-04-12] MEDS ORDERED: Nicotine 21 MG PATCH.TD24 TD SCH (09:00)
--- NOTE | 2017-04-12 09:31 | Internal Med Progress Note ---
Date of Encounter: 04/12/17 Time of Encounter: 08:30 - Assessment and plan (1) NSTEMI (non-ST elevated myocardial infarction) Current Visit: Yes Status: Acute Assessment and plan: Non-STEMI - status post CABG 4, postoperative day #4 Plan as per cardiothoracic surgery s/p [facility] - showed severe 3 vessel CAD - 60% pLAD, 80% mLAD, 95% 1st marginal, 100 % mRCA with collaterals 2 D Echo - normal LVEF @ 60-55% Cont ASA, B bcloker and Statin Cont close monitoring (2) Acute respiratory failure with hypoxia Current Visit: Yes Status: Acute Assessment and plan: Doing well since extubation Continue O2 via nasal cannula, continue incentive spirometry Continue DuoNeb breathing treatment, Symbicort (3) Essential hypertension Current Visit: Yes Status: Chronic Assessment and plan: Controlled, continue metoprolol, monitor (4) Tobacco abuse Current Visit: Yes Status: Chronic Assessment and plan: Counseled about cessation, nicotine patch (5) DVT prophylaxis Current Visit: Yes Status: Acute Assessment and plan: Continue heparin subcutaneous - Time Spent With Patient 25 - 35 minutes - Subjective Interval history: Patient awake and alert. Sitting up in chair. Not in any distress. Tolerating oral diet well. Denies chest pain or shortness of breath. No fever. Patient states he is doing well. Patient is currently postop day #4. Status post CABG 4. Hemodynamically stable. No other acute events or complaints. - Constitutional Vitals: Temp Pulse Resp BP Pulse Ox 97.7 F 93 18 98/74 92 04/12/17 07:04 04/12/17 07:20 04/12/17 07:04 04/12/17 07:04 04/12/17 07:04 General appearance: Present: A&O X 3, pleasant, no acute distress, obese, answers questions appropriately - Head Head exam: Present: atraumatic - Eye Eye exam: Present: EOMI - ENT ENT exam: Present: mucous membranes moist - Respiratory Respiratory exam: Present: CTAB. Absent: rales, rhonchi, wheezes, tachypnea - Cardiovascular Cardiovascular exam: Present: RRR, +S1, +S2 Additional comments: Surgical dressing intact, no bleeding or drainage - GI/Abdominal GI/Abdominal exam: Present: soft. Absent: distended, firm, guarding, tenderness - Extremities Exam Extremities exam: Present: pedal edema (Mild bilateral lower leg edema), radial pulses palpable and symmetrical. Absent: cyanotic - Neurological Exam Neurological exam: Present: alert, oriented X3, no focal deficits. Absent: facial droop, speech deficit Internal Medicine: Result - Labs CBC & Chem 7: 04/12/17 01:29 04/12/17 01:29 Labs: Short CBC 04/12/17 Range/Units 01:29 WBC 12.7 H (4.3-11.1) K/mcL Hgb 11.7 L (12.9-16.9) g/dL Hct 34.4 L (37.5-50.1) % Plt Count 235 (140-400) K/mcL Neutrophils # 8.8 (1.6-8.9) K/mcL BMP 04/12/17 01:29 Sodium 136 Potassium 3.6 Chloride 99 Carbon Dioxide 26 BUN 31 H Creatinine 1.09 Glucose 95 Calcium 9.0 - ABG Interpretation ABG results: ABG ABG pH 7.36 pH Units (7.32-7.45) 04/09/17 07:30 ABG pCO2 44 mmHg (35-45) 04/09/17 07:30 ABG pO2 58 mmHg (85-104) L 04/09/17 07:30 ABG O2 Saturation 89 % (95-98) L 04/09/17 07:30 PT/INR, D-dimer PT 13.4 Seconds (9.4-12.1) H 04/11/17 03:25 - Impressions Impressions Chest X-Ray 04/12/17 00:01 IMPRESSION: Slight improved aeration of the lungs D/ / Gene Chan MD / Gene Chan MD Interpreting Provider: Gene Chan MD - VTE Documentation of Mechanical Device: Graduated compression elastic hosiery Consult Discharge Plan - Plan Referrals: Annette Gilbert MD [Partnered Physician] - 05/19/17 1:00 pm Sydnee Marley CNP [Partnered Physician] - 04/26/17 10:30 am [facility] [Primary Care Provider[facility] - 04/22/17 9:15 am
--- NOTE | 2017-04-12 10:25 | Cardiothoracic Progress Note ---
Date of Encounter: 04/12/17 Time of Encounter: 10:24 - Assessment and plan (1) NSTEMI (non-ST elevated myocardial infarction) Current Visit: Yes Status: Acute The patient is recovering well from his CABG4. He remained hemodynamically stable overnight. He has begun ambulating in the hallways without difficulty. His supplement oxygen requirement has decreased significantly, and he is currently using 1-3 L O2 per minute via nasal cannula. He will continue with aggressive pulmonary toilet and ambulation. The assessment and plan as outlined above was discussed with the patient and/or family members who expressed understanding and agreement. All questions were answered. - Subjective Procedure(s) Performed: POD#4 S/P CABG4 Interval history: The patient remained hemodynamically stable overnight. He is sitting in a chair chair and breathing comfortably. He has started ambulating the hallways without difficulty. He has no complaints. Vital Signs, Last 4 Hours Temp Pulse Resp BP Pulse Ox 04/12/17 07:20 93 04/12/17 07:04 97.7 F 92 18 98/74 92 Oxgyen Flow Rate Oxygen Flow Rate (LPM) 2 Clinical Data, last 8 Hours Output, Urine Amount 0 Output, Urine Amount 0 Output, Urine Amount 550 Output, Urine Amount 0 Weight 04/10/17 04/11/17 04/12/17 23:59 23:59 23:59 Weight 124.2 kg 122.6 kg - Physical Examination General: Conversant, No Apparent Distress Neck: No JVD, Normal carotid pulses Cardiac: Reg Rate and Rhythm, Normal S1 and S2, No Murmur Incision: No signs of infection, Dry/intact dressing Sternum: Stable Pacing Wires: In place Lungs: Normal Breath Sounds, No Wheeze, Rales, Rhonchi Neuro: Alert and responsive, No focal deficits noted Vascular: Normal capillary refill Skin: No rashes noted on visualized skin Extremities: No Clubbing, No Cyanosis, No Edema - Labs 04/12/17 01:29 04/12/17 01:29 Lab Results, Last 24 hours 04/12/17 04/12/17 01:29 01:29 WBC 12.7 H Hgb 11.7 L Hct 34.4 L Plt Count 235 Sodium 136 Potassium 3.6 Chloride 99 Carbon Dioxide 26 BUN 31 H Creatinine 1.09 Glucose 95 Calcium 9.0 - VTE Documentation of Mechanical Device: Graduated compression elastic hosiery Consult Discharge Plan - Plan Referrals: Annette Gilbert MD [Partnered Physician] - 05/19/17 1:00 pm Sydnee Marley CNP [Partnered Physician] - 04/26/17 10:30 am [place],PCP [Primary Care Provider] - 04/22/17 9:15 am
[2017-04-12] MEDS: *HR* HYDROcodone/Acet 5/325 mg TABLET PO PRN ×2 (10:57→21:32)
[2017-04-13] MEDS: Ipratropium/Albuterol Neb 3 ML IH SCH ×2 (03:39→07:51)
[2017-04-13] MEDS: *HR* OxyCODONE/APAP 5/325 TABLET PO PRN (04:05)
[2017-04-13] MEDS: Ketorolac 15 MG/ML VIAL IVP SCH ×2 (06:23)
[2017-04-13] MEDS: *HR* Heparin 5,000 UNIT/ML VIAL SQ SCH (06:23)
--- NOTE | 2017-04-13 07:30 | Discharge Summary ---
Date of Encounter: 04/13/17 Time of Encounter: 07:30 - Discharge Diagnosis (1) NSTEMI (non-ST elevated myocardial infarction) Priority: Primary Status: Acute - Discharge Medications Prescriptions: Albuterol Sulfate [Albuterol Inhaler] 2 puff IH [id number] PRN #1 PRN Reason: Shortness Of Breath Ipratropium/Albuterol Neb [Duoneb] 3 ml IH [id number] #1 inh OxyCODONE/APAP 5/325 [Percocet 5/325 MG] 1 each PO Q4HR PRN #50 tab PRN Reason: Severe Pain Atorvastatin [Lipitor] 40 mg PO HS #30 tablet Metoprolol [Lopressor] 25 mg PO BID #60 tablet Home Medications: HYDROcodone/Acet 5/325 mg [[place] 5-325 mg] 1 tab PO Q6H PRN 04/04/17 [History] Losartan Potassium [Cozaar] 100 mg PO DAILY 04/04/17 [History] Acetaminophen [Tylenol] 650 mg PO Q6HR PRN tab 04/05/17 [Rx] Aspirin 81 mg PO DAILY 04/05/17 [Rx] Atorvastatin [Lipitor] 40 mg PO HS tab 04/05/17 [Rx] Metoprolol [Lopressor] 25 mg PO BID tab 04/05/17 [Rx] Nicotine Patch [Nicoderm] 21 mg TD DAILY 04/05/17 [Rx] Nitroglycerin 0.4 mg SL Q5MIN PRN 04/05/17 [Rx] Albuterol Sulfate [Albuterol Inhaler] 2 puff IH [id number] PRN #1 04/13/17 [Rx] Atorvastatin [Lipitor] 40 mg PO HS tab 04/13/17 [Rx] Atorvastatin [Lipitor] 40 mg PO HS #30 tablet 04/13/17 [Rx] Ipratropium/Albuterol Neb [Duoneb] 3 ml IH [id number] #1 inh 04/13/17 [Rx] Metoprolol [Lopressor] 25 mg PO BID tab 04/13/17 [Rx] Metoprolol [Lopressor] 25 mg PO BID #60 tablet 04/13/17 [Rx] OxyCODONE/APAP 5/325 [Percocet 5/325 MG] 1 each PO Q4HR PRN #50 tab 04/13/17 [Rx ] Allergies/Adverse Reactions: Allergies No Known Allergies Allergy (Verified 04/04/17 11:43) Date of admission: 04/05/17 14:57 Primary care physician: PCP [place] Consults: 04/08/17 12:27 Consult to Cardiac Rehabilitation-Phase1 [CONS] Routine Comment: Reason for Consult: Post open heart Call Completed: Yes 04/08/17 13:37 Consult to Pulmonology [CONS] Routine Consulting Provider: [facility] Reason for Consult: vent management, COPD Call Completed: Yes 04/11/17 09:13 Consult for Pharmacy Education [CONS] Routine Reason for Consult: Post-Op Heart Call Completed: Yes Consult to Occupational Therapy [CONS] Routine Comment: Evaluate, develop and implement POC Reason for Consult: Post-Op Heart Consult to Physical Therapy [CONS] Routine Comment: Evaluate, develop and implement POC Reason for Consult: Post open heart Procedure(s) Performed: 1. Cardiac catheterization performed April 04 2017. 2. CABG4 (LARA to LAD, sequential saphenous vein graft to D1 and OM1, saphenous vein graft to PDA) performed April 08, 2017. 3. Endoscopic vein harvesting, greater saphenous vein from right lower extremity performed April 08, 2017. Discharging clinician: Annette Gilbert Anticipated date of discharge: 04/13/17 - Patient Status Disposition: Home, Self-Care Condition: Good Functional capacity at discharge: independent ambulation Overall status at discharge: patient is progressing back to baseline - Discharge Instructions Follow Up With: Annette Gilbert MD [Partnered Physician] - 05/19/17 1:00 pm Sydnee Marley CNP [Partnered Physician] - 04/26/17 10:30 am [place],PCP [Primary Care Provider] - 04/22/17 9:15 am - Diet and Activity Activity: sternal precautions, no driving for four weeks, no lifting greater than 10 pounds for eight weeks Diet: low fat, low cholesterol - Hospital Course Hospital course: Mr. Portillo is a 46 year old hypertensive man with long smoking history who developed right arm pain and tingling April 04, 2017. He was evaluated at the [facility] and found to have elevated troponin I levels consistent with an acute NSTEMI. He underwent urgent cardiac catheterization was found to have severe 3 vessel CAD and an LVEF 60%. In particular, the patient had tandem 60% proximal and mid LAD lesions, a 90% proximal OM1 lesion, and a completely occluded proximal RCA which fills distally via [id number] collaterals. He was been recommended for CABG. He underwent CABG 4 on April 08, 2017. He remained hemodynamically stable postoperatively; however, had respiratory insufficiency due to his long smoking history. He required high flow oxygen and this was slowly weaned. He was transferred to the stepdown unit after several days in the ICU and was ambulating without difficulty. His oxygen requirement was had decreased to 2 L/ m via nasal cannula at time of discharge. The patient was discharged home on POD #5. - Time Spent with Patient Total time spent providing and/or coordinating discharge services: Physical Examination Vital Signs, Last 4 Hours Resp Pulse Ox 04/13/ 03:41 18 94 General: Conversant, No Apparent Distress Neck: No JVD, Normal carotid pulses Cardiac: Reg Rate and Rhythm, Normal S1 and S2, No Murmur Lungs: Normal Breath Sounds, No Wheeze, Rales, Rhonchi Neuro: Alert and responsive, No focal deficits noted Vascular: Normal capillary refill Musculoskeletal: No Chest Wall Tenderness Extremities: No Clubbing, No Cyanosis, No Edema Open Heart Registry Aspirin Cont/Prescribed at DC: Yes Beta Cathleen Cont/Prescribed at DC: Yes Statin Cont/Prescribed at DC: Yes KALE/ARB Cont/Prescribed at DC: Yes - VTE Documentation of Mechanical Device: Graduated compression elastic hosiery
[2017-04-13] MEDS: Budesonide/Formoterol 160/4.5 MDI IH SCH (07:51)
[2017-04-13 07:58] VITALS: BP 103/72
[2017-04-13] MEDS: Aspirin 81 MG TAB.CHEW PO SCH (08:07)
--- NOTE | 2017-04-13 08:55 | Internal Med Progress Note ---
Date of Encounter: 04/13/17 Time of Encounter: 08:45 - Assessment and plan (1) NSTEMI (non-ST elevated myocardial infarction) Current Visit: Yes Status: Acute Assessment and plan: Non-STEMI - status post CABG 4, postoperative day #5 Plan as per cardiothoracic surgery s/p LHC - showed severe 3 vessel CAD - 60% pLAD, 80% mLAD, 95% 1st marginal, 100 % mRCA with collaterals 2 D Echo - normal LVEF @ 60-55% Cont ASA, B bcloker and Statin Cont close monitoring Discharge home today, follow up with Dr Gilbert and PCP (2) Acute respiratory failure with hypoxia Current Visit: Yes Status: Acute Assessment and plan: Doing well since extubation Continue O2 via nasal cannula at home, continue incentive spirometry Continue DuoNeb breathing treatment, Symbicort (3) Essential hypertension Current Visit: Yes Status: Chronic Assessment and plan: Controlled, continue current meds, monitor (4) Tobacco abuse Current Visit: Yes Status: Chronic Assessment and plan: Counseled about cessation, nicotine patch - Time Spent With Patient 25 - 35 minutes - Subjective Interval history: Patient awake and alert. Sitting up in chair. Not in any distress. Tolerating oral diet well. Denies chest pain or shortness of breath. No fever. Patient states he is doing well. Patient is currently postop day #5. Status post CABG 4. Hemodynamically stable. No other acute events or complaints. Discharge home today as per Dr Gilbert. - Constitutional Vitals: Temp Pulse Resp BP Pulse Ox 98.0 F 83 17 103/72 92 04/13/17 07:56 04/13/17 08:10 04/13/17 07:56 04/13/17 07:56 04/13/17 07:56 General appearance: Present: A&O X 3, pleasant, no acute distress, obese, answers questions appropriately - Head Head exam: Present: atraumatic - Eye Eye exam: Present: EOMI - ENT ENT exam: Present: mucous membranes moist - Neck Neck exam general surgery: Present: supple - Respiratory Respiratory exam: Present: CTAB. Absent: rales, rhonchi, wheezes, tachypnea - Cardiovascular Cardiovascular exam: Present: RRR, +S1, +S2 Additional comments: surgical dressing intact, no bleeding or drainage - GI/Abdominal GI/Abdominal exam: Present: soft. Absent: distended, firm, guarding, tenderness - Extremities Exam Extremities exam: Present: pedal edema (mild b/l), radial pulses palpable and symmetrical. Absent: cyanotic - Neurological Exam Neurological exam: Present: alert, oriented X3, no focal deficits Internal Medicine: Result - Labs CBC & Chem 7: 04/12/17 01:29 04/12/17 01:29 - ABG Interpretation ABG results: ABG ABG pH 7.36 pH Units (7.32-7.45) 04/09/17 07:30 ABG pCO2 44 mmHg (35-45) 04/09/17 07:30 ABG pO2 58 mmHg (85-104) L 04/09/17 07:30 ABG O2 Saturation 89 % (95-98) L 04/09/17 07:30 PT/INR, D-dimer PT 13.4 Seconds (9.4-12.1) H 04/11/17 03:25 - VTE Documentation of Mechanical Device: Graduated compression elastic hosiery Consult Discharge Plan - Plan Referrals: Annette Gilbert MD [Partnered Physician] - 05/19/17 1:00 pm Sydnee Marley CNP [Partnered Physician] - 04/26/17 10:30 am [place],PCP [Primary Care Provider] - 04/22/17 9:15 am Prescriptions: Albuterol Sulfate [Albuterol Inhaler] 2 puff IH [id number] PRN #1 PRN Reason: Shortness Of Breath Ipratropium/Albuterol Neb [Duoneb] 3 ml IH [id number] #1 inh OxyCODONE/APAP 5/325 [Percocet 5/325 MG] 1 each PO Q4HR PRN #50 tab PRN Reason: Severe Pain Atorvastatin [Lipitor] 40 mg PO HS #30 tablet Metoprolol [Lopressor] 25 mg PO BID #60 tablet
== END 2017-04-13 10:45 | disposition home or self-care (01) | DRG 233 ==
LOC: EMEROO 11:39 → 3BNU 11:39 → ICNU 04-08 07:59 → 2NNU 04-11 09:46
PROVIDERS: ADMIT Internal Medicine Endocrinology, Diabetes & Metabolism; ATTEND Registered Nurse